=== PATIENT | male | born 1940 | race Caucasian/White ===

== ENCOUNTER 2016-08-05 10:09 | Inpatient (IN) | payer MEDICARE, OTHER ==
[2016-08-05] VITALS (18 sets, daily range): BP systolic 154–172; BP diastolic 69–94; PULSE 65–94; RESP 14–16; TEMP 98.2–99.2; O2SAT 97–100
[~2016-08-05] VITALS: Ht 175.3 cm; Wt 92.6 kg
[~2016-08-05 10:09] MED LIST: ACET325T PO; AMLO5 PO; AMPI1INJ IV; BUME1TAB PO; CARV3.12 PO; CARV6.25 PO; DRON2.5 PO; FENO160T PO; FERR325T PO; GENT80I IV; HYDR10TA23 PO; IPRASOL NEB; LANTUS2P SQ; LEVA750T PO; LEVEMIR SQ; LIDO5DIS35 TD; LOSA100T PO; METF500T PO; PANT20 PO; POTA10TA2 PO; PRAZ2 PO; PRAZ2CAP PO; PRIL20CA9 PO; ROSU1TAB10 PO; ULTR50TA5 PO; WARF-23 PO
[2016-08-05] MEDS ORDERED: CHLORHEXIDINE GLUCONATE 2 % 1 PACK (2 CLOTHS)(extra cloths) TOP PRN (11:00)
--- NOTE | 2016-08-05 11:26 | RADRPT ---
EXAM DATE/TIME: 08/05/2016 10:56 [facility] COMPARISON: CT BRAIN W/O CONTRAST, July 24, 2016, 10:25. INDICATIONS : Change in mental status. RADIATION DOSE: 50.34 CTDIvol (mGy) MEDICAL HISTORY : Myocardial infarction. Renal failure, chronic. Chronic obstructive pulmonary disease.Diabetes. Hyper tension. SURGICAL HISTORY : CABG ENCOUNTER: Initial ACUITY: 1 day PAIN SCALE: Non-responsive LOCATION: cranial TECHNIQUE: Multiple contiguous axial images were obtained of the head. Using automated exposure control and adj ustment of the mA and/or kV according to patient size, radiation dose was kept as low as reasonably a chievable to obtain optimal diagnostic quality images. FINDINGS: CEREBRUM: Small foci of low attenuation involving the periventricular white matter posterior hemispheres as wel l as the thalami bilaterally. The ventricles are normal for age. No evidence of midline shift, mass lesion, hemorrhage or acute infarction. No extra-axial fluid collections are seen. POSTERIOR FOSSA: The cerebellum and brainstem are intact. The 4th ventricle is midline. The cerebellopontine angle i s unremarkable. EXTRACRANIAL: The visualized portion of the orbits is intact. SKULL: The calvaria is intact. No evidence of skull fracture. CONCLUSION: 1. No acute intracranial abnormality. 2. Chronic small vessel ischemic change. Govind Terry Jr., MD on August 05, 2016 at 11:22 Board Certified Radiologist. This report was verified electronically.
[2016-08-05 11:56] LABS: BLOOD GAS BASE EXCESS -2.5 mmol/L (-2-2); BLOOD GAS CARBOXYHEMOGLOBIN 1.4 % (0-4); BLOOD GAS HCO3 21 mmol/L (22-26); BLOOD GAS METHEMOGLOBIN 1.1 % (0-2); BLOOD GAS O2 HGB SATURATION 97 % (90-100); BLOOD GAS OXYGEN CONTENT 14.8 Vol % (12.0-20.0); BLOOD GAS PCO2 32 mmHg (38-42); BLOOD GAS PO2 168 mmHg (61-120); BLOOD GAS TOTAL HGB 10.6 G/DL (12.0-16.0); CRITICAL VALUE NO; OXYGEN DEVICE VENTILATOR; TEMP CORR TO 98.6
[2016-08-05 11:57] LABS: DRAW SITE LT RADIAL; FIO2 50 %; NUMBER OF ARTERIAL PUNCTURES 1; ULNAR PULSE Y; VENT SETTINGS AC14/500/5PEEP
[2016-08-05] MEDS: PANTOPRAZOLE SODIUM 40 MG VIAL IV SCH (12:00)
[2016-08-05] MEDS ORDERED: CHLORHEXIDINE GLUCONATE 2 % 1 PACK (2 CLOTHS) TOP PRN (12:00)
[2016-08-05] MEDS ORDERED: MISCELLANEOUS NURSING INFORMATION XX SCH (12:00)
[2016-08-05] MEDS ORDERED: GLUCAGON 1 MG/ML VIAL OTHER PRN (12:15)
[2016-08-05] MEDS: INSULIN NovoLIN REGULAR SUPPLEMENTAL SCALE SQ SCH ×2 (12:15→18:15)
[2016-08-05] MEDS ORDERED: DEXTROSE 50% IN WATER 50 ML VIAL(D50) IV PUSH PRN (12:15)
[2016-08-05] MEDS: RESP: ALBUTEROL 2.5 MG/IPRATROPIUM 0.5 MG NEB (SCH) INH ×3 (12:31→20:22)
--- NOTE | 2016-08-05 12:43 | RADRPT ---
EXAM DATE/TIME: 08/05/2016 11:49 [facility] COMPARISON: CHEST SINGLE AP, July 31, 2016, 8:45. INDICATIONS : Endotracheal tube placement. MEDICAL HISTORY : None. SURGICAL HISTORY : None. ENCOUNTER: Initial ACUITY: 1 day PAIN SCORE: Non-responsive. LOCATION: chest FINDINGS: Again noted is evidence of prior median sternotomy cardiac surgery. There is a left PICC line in plac e and nasogastric tube passing to the midline in the stomach as well as placement of an endotracheal tube terminating just above the su. Lung degroot remain clear. CONCLUSION: ET tube above the su. No acute cardiopulmonary process. Robert Ballard MD on August 05, 2016 at 12:40 Board Certified Radiologist. This report was verified electronically.
--- NOTE | 2016-08-05 12:50 | MH ---
cc: JOSHUA BAKER M.D. 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 The patient was recently diagnosed with Enterococcus bacteremia and was started on IV antibiotics in the form of ampicillin and gentamicin. 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 He had a CT scan of the brain which showed multiple small areas of acute infarcts involving the right occipital lobe, right thalamic, right parietal, left frontal and left cerebellar hemisphere. MRI of the brain was obtained which also showed multiple acute infarcts and MRA of the head showed findings compatible with occlusion of the right internal carotid artery. He was admitted to [facility] after the patient was found unresponsive with agonal breathing and neuro changes. He was subsequently transferred to [facility] where he was intubated and placed on full mechanical ventilation. A STAT CT scan of the brain was obtained which showed chronic small-vessel ischemic changes, otherwise no acute intracranial abnormality. PAST MEDICAL HISTORY 1. COPD. 2. Gastroesophageal reflux disease. 3. Hypertension. 4. Diabetes. 5. Arthritis. 6. Chronic atrial fibrillation on Coumadin. 7. Carotid stenosis. 8. Recent treatment for Enterococcus bacteremia. 9. CVA. PAST SURGICAL HISTORY 1. Previous aortic valve replacement. 2. Previous CABG. 3. Previous hemorrhoidectomy. ALLERGIES KEFLEX. OXYCODONE. CURRENT MEDICATIONS Reviewed. FAMILY HISTORY Noncontributory. SOCIAL HISTORY The patient has remote history of smoking. No history of alcohol use. REVIEW OF SYSTEMS As per the HPI. Rest of the review of systems unobtainable as the patient is intubated. PHYSICAL EXAMINATION GENERAL: A 76-year-old male intubated for airway protection. VITAL SIGNS: Afebrile, pulse of 60s to 70s, blood pressure 146/67, saturation 97%. Vent setting assist control rate of 14, tidal volume 500, PEEP of 5, FIO2 50%. HEENT: Atraumatic, normocephalic. Pupils equal, round, reactive to light and accommodation. Extraocular muscles intact. Conjunctivae pink. Nonicteric sclera. Oral mucosa within normal. NECK: Supple. No JVD, adenopathy or thyromegaly. Trachea in the midline. Orally intubated. CARDIOVASCULAR EXAM: Regular rate and rhythm. Normal S1-S2. No murmurs, rubs or gallops noted. PULMONARY EXAM: Bilateral equal air entry. No rales or wheezing. ABDOMEN: Soft, obese, nontender. No distension. Positive bowel sounds. EXTREMITIES: No cyanosis, clubbing or edema. NEURO: Intubated, sedated. Slurred speech is noted prior to intubation. LABORATORY DATA ABG post-intubation showed a pH of 7.43, CO2 32, pAO2 168, bicarb 21, sats of 97%. Sodium 138, potassium 3.9, chloride 105, CO2 22, BUN 23, creatinine 1.82, glucose 99 on August 03. RADIOGR[address]HY STUD[address] CT scan of the brain this morning showed no acute intracranial abnormality. IMPRESSION 1. Acute respiratory failure requiring intubation. 2. Encephalopathy. 3. Embolic CVA. 4. Recent Enterococcus bacteremia. 5. Chronic kidney disease. 6. Atrial fibrillation on Coumadin. 7. Hypertension. 8. Diabetes mellitus. RECOMMENDATIONS 1. Place on Diprivan infusion for sedation and vent synchrony. Monitor neuro status closely. CT scan of the brain from this morning showed no evidence of any acute intracranial abnormality. We will proceed with MRI and MRA of the brain in addition to an EEG and consult neurology service. Also, will obtain carotid Doppler ultrasound. 2. Continue with vent support and maintain sats above 92%. 3. Bronchodilators in the form of DuoNeb q. 4 or q. 6 and will initiate ICU vent bundle. We will check a chest x-ray post-intubation. ABG reviewed. Decrease FIO2 to 40%. 4. Monitor heart rate and blood pressure closely and maintain MAP greater than 65 mmHg. 5. We will obtain 2-D echo to evaluate LV function. 6. Monitor renal function I's and O's and avoid nephrotoxins. 7. Place on IV fluids in the form of D5 NS at [address] on Protonix 40 mg IV daily for GI prophylaxis and will initiate tube feeds in the form of Glucerna 1.5 with goal rate of 45 per hour. 9. Continue with antibiotics- ampicillin. We will reconsult Infectious Disease regarding Enterococcus bacteremia. We will repeat blood cultures x 2 sets and urinalysis with culture if indicated. 10. Sliding scale insulin with Accu-Chek q. 6-hour if needed for glycemic control. 11. Monitor CBC and coags as patient is on Coumadin with his last INRs 2.0 yesterday. 12. GI prophylaxis with Protonix 40 mg daily and DVT prophylaxis with SCDs and continue with Coumadin. Further recommendations will be based on hospital course. CRITICAL CARE TIME 60 minutes excluding procedures. MD VELASQUEZ Banerjee/DENNIS /12:22 PM /12:36 PM MTDHelene
--- NOTE | 2016-08-05 13:04 | HHI.IDPN ---
Note Infectious Disease Note Patient is now in IMC - transferred for acute neurological change. Intubated and on the ventilator. On 40% FIO2. In soft hand restraints. Has stallings with clear urine. Copious biliary liquid suctioned. New labs pending. Transferred to rehab from [facility] /. On treatment for enterococcal bacteremia. Last blood culture 07/19 at NS negative. PAST MEDICAL HISTORY: 1. COPD. 2. Gastroesophageal reflux disease (GERD). 3. Hypertension. 4. Diabetes mellitus. 5. Arthritis. 6. Chronic atrial fibrillation. 7. Carotid stenosis. PAST SURGICAL HISTORY: 1. Aortic valve replacement. 2. Coronary bypass graft surgery. 3. Hemorrhoidectomy. ALLERGIES: 1. KEFLEX. 2. OXYCODONE. ANTIBIOTIC Ampicillin IV. Current Medications Medications (Trade) Dose Ordered Sig/Ashley Route PRN Reason Start Time Stop Time Status Last Admin Dose Admin Pantoprazole Sodium (Protonix Inj) 40 mg DAILY IV 08/05/16 12:00 08/05/16 12:00 Miscellaneous Information 1 Q361D XX 08/05/16 12:00 Chlorhexidine Gluconate (Chlorhexidine 2% Cloth) 3 pack Taper DAILY@04 TOP 08/06/16 04:00 08/02/17 03:59 Chlorhexidine Gluconate 3 pack 3 pack UNSCH PRN [facility] 08/05/16 12:00 Propofol (Diprivan 1000 Mg/100ml Inj) 100 ml @ 0 mls/hr TITRATE IV 08/05/16 12:00 Dextrose (D50w (Vial) Inj) 25 ml UNSCH PRN IV PUSH HYPOGLYCEMIA-SEE COMMENTS 08/05/16 12:15 Glucagon (Glucagon Inj) 1 mg UNSCH PRN OTHER HYPOGLYCEMIA-SEE COMMENTS 08/05/16 12:15 Insulin Human Regular (NovoLIN R SUPPLEMENTAL SCALE) 1 Q6H SQ 08/05/16 12:15 Hydralazine HCl (Apresoline Inj) 10 mg Q6H PRN IV PUSH SYS BP GREATER THAN 160 MMHG 08/05/16 12:15 OBJECTIVE: Vital Signs Date Time Temp Pulse Resp B/P Pulse Ox O2 Delivery O2 Flow Rate FiO2 08/05/16 10:45 97 50 08/05/16 10:10 99 50 08/05/16 10:00 97 08/01/16 08/01/16 08/02/16 15:00 23:00 07:00 Intake Total 240 ml 560 ml Output Total 650 ml Balance -410 ml 560 ml Intake Oral 240 ml 340 ml IV Total 220 ml Output Urine Total 650 ml # Voids 2 3 Laboratory Tests Test 08/02/16 08:35 White Blood Count 12.8 TH/MM3 Red Blood Count 3.07 MIL/MM3 Hemoglobin 7.8 GM/DL Hematocrit 24.6 % Mean Corpuscular Volume 80.3 FL Mean Corpuscular Hemoglobin 25.4 PG Mean Corpuscular Hemoglobin 31.7 % Concent Red Cell Distribution Width 19.3 % Platelet Count 221 TH/MM3 Mean Platelet Volume 8.8 FL Laboratory Tests Test 08/02/16 08:34 Sodium Level 137 MEQ/L Potassium Level 4.1 MEQ/L Chloride Level 105 MEQ/L Carbon Dioxide Level 21.2 MEQ/L Anion Gap 11 MEQ/L Blood Urea Nitrogen 27 MG/DL Creatinine 1.91 MG/DL Estimat Glomerular Filtration 34 ML/MIN Rate Random Glucose 142 MG/DL Calcium Level 8.4 MG/DL IMAGING: Head CT 08/05/16 0000 Signed Impressions: Service Date/Time: Friday, August 05, 2016 10:56 - CONCLUSION: 1. No acute intracranial abnormality. 2. Chronic small vessel ischemic change. Govind Terry Jr., MD Lower Extremity Ultrasound 07/31/16 0000 Signed Impressions: Service Date/Time: Sunday, July 31, 2016 09:00 - CONCLUSION: Negative for deep venous thrombosis. Dixon Cruz MD FACR Chest X-Ray 07/31/16 0000 Signed Impressions: Service Date/Time: Sunday, July 31, 2016 08:45 - CONCLUSION: Stable appearance with no acute cardiopulmonary disease. Darell Andrews MD Head CT 07/24/16 0911 Signed Impressions: Service Date/Time: Sunday, July 24, 2016 10:25 - CONCLUSION: No acute disease. Dixon Cruz MD FACR Renal Ultrasound 07/23/16 0000 Signed Impressions: Service Date/Time: Saturday, July 23, 2016 15:41 - CONCLUSION: 1. Bilateral renal cysts. No hydronephrosis. Scotty Miranda MD Ankle X-Ray 07/19/16 0000 Signed Impressions: Service Date/Time: Tuesday, July 19, 2016 18:51 - CONCLUSION: Chronic changes and no evidence for acute fracture. Rashad Hagen MD PHYSICAL EXAMINATION GENERAL: On the vent. Sedated. HEENT: No icterus. No conjunctival erythema. NECK: Supple. LUNGS: Clear breath sounds. HEART: Irregular rate and rhythm. 1-2/6 systolic murmur. ABDOMEN: Bowel sounds present, soft, no tenderness. EXTREMITIES: No clubbing or cyanosis, edema. SKIN: No rash. NEUROLOGIC: Unable to fully assess. IMPRESSION: 1. Enterococcal bacteremia. 2. Acute kidney disease probably exacerbated by aminoglycosides. Slow to improve. worse indices. 3. Elevated liver function tests, uncertain etiology. Resolved. 4. History of aortic valve replacement. Negative transesophageal echocardiogram. 5. Decreased mental status waxing and waning. Patient was somnolent a week ago and then got better. Probably medication effect. Acute mental status change. 6. Acute Respiratory failure. RECOMMENDATIONS: 1. Continue Ampicillin IV. Plan is for IV antibiotics x 6 weeks from 07/19/16 date of last positive blood culture. 2. Monitor renal function. Avoid nephrotoxic meds. 3. Monitor WBC. 4. Follow CXR. Srinath Jean-Baptiste MD Aug 05, 2016 13:03
[2016-08-05 14:05] LABS: BACTERIA, URINE RARE /hpf; BLOOD, URINE NEG (NEG); GLUCOSE,URINE NEG (NEG); KETONE, URINE NEG (NEG); MUCUS URINE FEW /lpf (OCC); NITRITE,URINE NEG (NEG); PH, URINE 5.5 (5.0-8.5); URINE COLOR YELLOW (YELLW/STRAW)
[2016-08-05 14:10] LABS: COMMENT (UR) CATH-CULTURE IND; CULTURE IF INDICATED CATH CULTURE IND
[2016-08-05 14:27] LABS: AUTOMATED NEUTROPHIL # 10.4 TH/MM3 (1.8-7.7); BASOPHIL # 0.1 TH/MM3 (0-0.2); BASOPHIL % 0.7 % (0.0-2.0); EOSINOPHIL # 0.2 TH/MM3 (0-0.4); EOSINOPHIL % 1.8 % (0.0-4.0); HEMATOCRIT 23.3 % (39.0-51.0); HEMO FLAGS DIFF FINAL; LYMPH % 4.8 % (9.0-44.0); LYMPHOCYTE # 0.6 TH/MM3 (1.0-4.8); MEAN CELL VOLUME 79.6 FL (80.0-100.0); MEAN CORPUSCULAR HEMOGLOBIN 25.7 PG (27.0-34.0); MEAN CORPUSCULAR HGB CONC 32.2 % (32.0-36.0); MONO % 7.8 % (0.0-8.0); NEUT % 84.9 % (16.0-70.0); PLATELET COUNT 241 TH/MM3 (150-450); RED BLOOD COUNT 2.93 MIL/MM3 (4.50-5.90); RED CELL DISTRIBUTION WIDTH 19.2 % (11.6-17.2); WHITE BLOOD COUNT 12.3 TH/MM3 (4.0-11.0)
[2016-08-05 14:36] LABS: ALT (GPT) 26 U/L (12-78); ANION GAP 9 MEQ/L (5-15); AST (GOT) 24 U/L (15-37); BLOOD UREA NITROGEN 22 MG/DL (7-18); CHLORIDE 109 MEQ/L (98-107); GLOMERULAR FILTRATION RATE 42 ML/MIN (>89); MAGNESIUM 2.1 MG/DL (1.5-2.5); SODIUM (NA) 141 MEQ/L (136-145)
[2016-08-05 14:38] LABS: ALKALINE PHOSPHATASE 163 U/L (45-117); TOTAL BILIRUBIN ADULT 0.5 MG/DL (0.2-1.0)
[2016-08-05] MEDS: DEXT 5%-NACL 0.9% 1000 ML INJ 1,000 ML IV SCH (16:00)
--- NOTE | 2016-08-05 17:27 | RADRPT ---
EXAM DATE/TIME: 08/05/2016 16:12 [facility] COMPARISON: CT BRAIN W/O CONTRAST, July 24, 2016, 10:25. INDICATIONS : CVA. MEDICAL HISTORY : Hypertension. Diabetes mellitus type 2. SURGICAL HISTORY : CABG ENCOUNTER: Initial ACUITY: 1 day PAIN SCORE: Nonresponsive. LOCATION: Head TECHNIQUE: Multiplanar, multisequence MRI of the brain was performed without contrast. FINDINGS: There is an area of restricted diffusion involving the left MCA territory. This involves the left fro ntal lobe, insular cortex, temporal lobe, and parietal lobe. No hemorrhage is appreciated. There is s ubtle high T2 signal abnormality within this same location. No midline shift. There is reduced signal on the ADC map in the same location. The remaining brain parenchyma shows normal attenuation. Orbita l structures are unremarkable. Paranasal sinuses and mastoid air cells are clear. CONCLUSION: 1. Large left acute nonhemorrhagic MCA territory infarction. No midline shift. Govind Terry Jr., MD on August 05, 2016 at 17:20 Board Certified Radiologist. This report was verified electronically.
--- NOTE | 2016-08-05 17:57 | RADRPT ---
EXAM DATE/TIME: 08/05/2016 16:12 [facility] COMPARISON: MRI BRAIN W/O CONTRAST, August 05, 2016, 16:12. CT BRAIN W/O CONTRAST, Jul, 10:56. INDICATIONS : CVA. MEDICAL HISTORY : Hypertension. Diabetes mellitus type 2. SURGICAL HISTORY : CABG ENCOUNTER: Initial ACUITY: 1 day PAIN SCORE: Nonresponsive. LOCATION: head Please note a normal MRA of the brain does not entirely exclude the possibility of a small aneurysm, nor the possibility of distal intracranial vessel disease. TECHNIQUE: 3D time of flight MRA was performed. Source images, multiplanar STS MIP, and 3D volum e MIP reconstructions were reviewed. FINDINGS: Posterior circulation appears intact. The anterior circulation is abnormal. There is st enosis at the left internal carotid in the distal portion of the siphon. There is minimal visualizati on of the right internal carotid and the siphon with intracranial branches noting some mild atheroscl erosis and the right side probably filling via posterior communicating artery. The left M1 segment at its distal ostium is abruptly terminated correlating with acute stroke in the left middle cerebral a rtery. Thrombus cannot be excluded. CONCLUSION: Severe atherosclerotic vascular disease. Stenosis is not almost 100% in the right int ernal carotid with filling of the intracranial portion of this via posterior communicating from the p osterior circulation. Left initial M1 segment is abruptly terminated which may repr esent acute thrombus which would correlate with the left middle cerebral artery stroke on MRI. These abnormal findings could be further evaluated with CTA o f the brain and or angiography. Robert Ballard MD on August 05, 2016 at 17:49 Board Certified Radiologist. This report was verified electronically.
[2016-08-05] MEDS: PROPOFOL 1000 MG/100 ML INJ 100 ML IV SCH ×4 (18:27→21:51)
[2016-08-05] MEDS: AMPICILLIN 2 GM/NS 100 ML IV SCH ×2 (18:29)
--- NOTE | 2016-08-05 23:28 | RADRPT ---
EXAM DATE/TIME: 08/05/2016 22:25 [facility] COMPARISON: MRA BRAIN W/O CONTRAST, August 05, 2016, 16:12. INDICATIONS : Cerebrovascular accident. MEDICAL HISTORY : Myocardial infarction. Congestive heart failure. Hypercholesterolemia. Carotid stenosis. Head trauma. Hypertension. Asthma. Chronic obstructive pulomonary disorder. Gastroesophageal reflux disease. Sonia l failure. Renal calculi. Diabetes. Arthritis. A-Fib. SURGICAL HISTORY : CABG. Hemorrhoidectomy. Aortic valve replacement. Left and and rotator cuff repair. ENCOUNTER: Initial ACUITY: 1 day PAIN SCORE: Nonresponsive. LOCATION: Bilateral neck PEAK SYSTOLIC VELOCITIES (cm/sec): ICA/CCA RATIO: Right: 0.4 Left: 1.0 ICA: Right: 29 Left: 65 CCA: Right: 69 Left: 67 ECA: Right: 109 Left: 114 VERTEBRAL: Right: 109 antegrade Left: 26 antegrade Elevated flow velocities and ICA/CCA ratios have been found to correlate with increased degrees of vessel stenosis, calculated as percentage of diameter relative to a normal segment of distal ICA/CCA FINDINGS: RIGHT CAROTID: There is moderate plaque at the carotid bulb region. It appears the right internal carotid artery is occluded. LEFT CAROTID: There is moderate plaque seen on the grayscale image at the carotid bulb region. The waveforms are wi thin normal limits. VERTEBRAL ARTERIES: Antegrade flow is seen in both vertebral arteries. MISCELLANEOUS: None. CONCLUSION: 1. Right internal carotid artery occlusion. 2. Moderate plaque at the left carotid bulb region, a significant stenosis is not confirmed on the Do ppler interrogation. Carlos Eduardo Jordan MD on August 05, 2016 at 23:24 Board Certified Radiologist. This report was verified electronically.
[2016-08-06] VITALS (20 sets, daily range): BP systolic 140–176; BP diastolic 63–79; PULSE 59–78; RESP 14–18; TEMP 98.6–99.9; O2SAT 98–100
[2016-08-06] MEDS: INSULIN NovoLIN REGULAR SUPPLEMENTAL SCALE SQ SCH ×3 (00:15→12:15)
[2016-08-06] MEDS: AMPICILLIN 2 GM/NS 100 ML IV SCH ×8 (00:46→18:00)
[2016-08-06] MEDS: PROPOFOL 1000 MG/100 ML INJ 100 ML IV SCH ×3 (00:47→19:15)
[2016-08-06] MEDS: RESP: ALBUTEROL 2.5 MG/IPRATROPIUM 0.5 MG NEB (SCH) INH ×4 (03:02→21:11)
[2016-08-06] MEDS ORDERED: CHLORHEXIDINE GLUCONATE 2 % 1 PACK (2 CLOTHS)(taper/protocol) TOP SCH (04:00)
[2016-08-06 04:27] LABS: INTERNATIONAL NORMALIZED RATIO 2.2 RATIO; PROTHROMBIN TIME - PATIENT 25.7 SEC (9.8-11.6)
[2016-08-06 04:31] LABS: AUTOMATED NEUTROPHIL # 11.2 TH/MM3 (1.8-7.7); BASOPHIL # 0.3 TH/MM3 (0-0.2); BASOPHIL % 2.2 % (0.0-2.0); EOSINOPHIL # 0.7 TH/MM3 (0-0.4); EOSINOPHIL % 5.1 % (0.0-4.0); HEMATOCRIT 23.6 % (39.0-51.0); HEMO FLAGS DIFF FINAL; LYMPH % 5.3 % (9.0-44.0); LYMPHOCYTE # 0.8 TH/MM3 (1.0-4.8); MEAN CELL VOLUME 79.4 FL (80.0-100.0); MEAN CORPUSCULAR HEMOGLOBIN 25.7 PG (27.0-34.0); MEAN CORPUSCULAR HGB CONC 32.4 % (32.0-36.0); MONO % 9.9 % (0.0-8.0); NEUT % 77.5 % (16.0-70.0); PLATELET COUNT 261 TH/MM3 (150-450); RED BLOOD COUNT 2.98 MIL/MM3 (4.50-5.90); RED CELL DISTRIBUTION WIDTH 19.4 % (11.6-17.2); WHITE BLOOD COUNT 14.4 TH/MM3 (4.0-11.0)
[2016-08-06 04:54] LABS: ALT (GPT) 23 U/L (12-78); ANION GAP 9 MEQ/L (5-15); AST (GOT) 30 U/L (15-37); BICARBONATE 23.8 MEQ/L (21.0-32.0); BLOOD UREA NITROGEN 18 MG/DL (7-18); CHLORIDE 109 MEQ/L (98-107); GLOMERULAR FILTRATION RATE 42 ML/MIN (>89); MAGNESIUM 2.1 MG/DL (1.5-2.5); POTASSIUM 3.5 MEQ/L (3.5-5.1); SODIUM (NA) 142 MEQ/L (136-145)
[2016-08-06 04:57] LABS: ALKALINE PHOSPHATASE 158 U/L (45-117); TOTAL BILIRUBIN ADULT 0.5 MG/DL (0.2-1.0)
[2016-08-06] MEDS: CHLORHEXIDINE GLUCONATE 2 % 1 PACK (2 CLOTHS) TOP SCH (05:11)
[2016-08-06] MEDS: DEXT 5%-NACL 0.9% 1000 ML INJ 1,000 ML IV SCH ×2 (05:13→18:20)
--- NOTE | 2016-08-06 07:44 | MB ---
cc: MICHAEL ABDI M.D. DATE OF CONSULTATION 08/05/2016 DATE OF 1940 REASON FOR CONSULTATION Stroke HISTORY The patient is a 76-year-old man previously was at [facility] in [facility] on 07/12/2016 with weakness that began a month prior to admission and having falls, sepsis and enterococcus. PE was negative for vegetation however, was being treated for endocarditis due to bacteremia and a history of aortic valve replacement. He was on IV ampicillin for six weeks and gentamicin for seven days. He was also found to have a stroke due to embolism showing bilateral acute infarcts largest in the right occipital lobe, smaller multiple infarcts around the right thalamus, parietal lobe on the right, centrum semi-ovale on the right, left frontal lobe, left parietal lobe and cerebellar hemispheres. Also showing right internal carotid occlusion and MRA of the head showed occlusion of the right internal carotid, left cavernous internal carotid greater than 70%. Carotid duplex showed occlusion of the right carotid and left mid internal carotids 70-90% stenosis. He was admitted to [facility]. However, he is now in ICU. A Helicat was called. The patient was found unresponsive with agonal breathing and neuro changes. He was transferred to [facility], intubated, placed on sedation with full mechanical ventilation He had a CT of the brain performed that did not show any findings. MRI was just completed that shows a large acute left MCA what looks to be a malignant left MCA infarct. The report is still pending and MRA report is pending. PAST MEDICAL HISTORY The patient has a history of: 1. COPD 2. Reflux 3. Stroke 4. Hypertension 5. Diabetes 6. A fib on Coumadin 7. Carotid stenosis 8. Treatment of enterococcus bacteremia PAST SURGICAL HISTORY 1. AVR 2. Aortic valve replacement 3. CABG 4. Hemorrhoidectomy ALLERGIES KEFLEX AND OXYCODONE. FAMILY HISTORY Noncontributory SOCIAL HISTORY Remote history of smoking. NO alcohol. Apparently, I am told he has four children. PHYSICAL EXAM VITALS: Temperature 98.2, pulse 87, respiratory rate 14. His blood pressure 153/73. HEAD, EYES, EARS, NOSE, AND THROAT: He is intubated on a ventilator. Pinpoint pupils, downward gaze, sedated. Unable to arouse him. NEUROLOGIC: He has right hemiplegia. Right leg is externally deviated. Left toe, he withdraws to noxious stimuli. Does not follow any commands otherwise. LABORATORY DATA White count 12.3, hemoglobin 7.5, platelets 241,000. Coag panel PTT 35.5. Chemistries, BUN 22, creatinine 1.59, GFR 42, calcium 8.2. His urine cath culture is pending. Protein 100. Nasal MRSA negative. MRI report shows large left acute nonhemorrhagic MCA territory without shift. MRA is still pending. IMPRESSION Large left MCA infarct with a history of embolic stroke. Carotid disease bilateral. RECOMMENDATIONS I know he is undergoing a carotid ultrasound as well. MRA report is pending. He has been on Warfarin. His last INR this morning was 2.7 with a PTT of 35.5. I would hold his anticoagulation due to increased risk of hemorrhagic conversion. Despite having an adequate INR, he still had a large stroke. We will monitor his neuro status on a daily basis, however I am worried that he may start developing edema and risk for herniation and we would need to check a CT in the morning stat should he have worsening of his condition. Prognosis is extremely poor given the findings of prior stroke and new stroke on top of this especially his dominant hemisphere. I know palliative has been consulted. Further recommendations will be made accordingly. MD ARIANE Morales/LETHA /6:02 PM /7:24 AM
[2016-08-06] MEDS: PANTOPRAZOLE SODIUM 40 MG VIAL IV SCH (09:14)
--- NOTE | 2016-08-06 09:29 | HHI.CCPN ---
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 The patient was recently diagnosed with Enterococcus bacteremia and was started on IV antibiotics in the form of ampicillin and gentamicin. 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 He had a CT scan of the brain which showed multiple small areas of acute infarcts involving the right occipital lobe, right thalamic, right parietal, left frontal and left cerebellar hemisphere. MRI of the brain was obtained which also showed multiple acute infarcts and MRA of the head showed findings compatible with occlusion of the right internal carotid artery. [facility] was [facility]. Mary Lou was called earlier today as a Stroke Alert after the patient was found unresponsive with agonal breathing and neuro changes. He was [place] [facility] and placed on full mechanical ventilation. A STAT CT scan of the brain was obtained which showed chronic small-vessel ischemic changes, otherwise no acute intracranial abnormality. 08/06 Patient is sedated with Diprivan and sedated, Afebrile. MRI brain showed large left MCA non hemorrhagic infarct. Objective Vital Signs Date Time Temp Pulse Resp B/P Pulse Ox O2 Delivery O2 Flow Rate FiO2 08/06/16 08:18 100 40 08/06/16 08:00 66 08/06/16 04:00 98.6 14 146/65 08/05/16 17:24 Venturi Mask Intake and Output 08/05/16 08/05/16 08/06/16 08:00 16:00 00:00 Intake Total 950 ml 498 ml Output Total 950 ml 850 ml Balance 0 ml -352 ml Result Diagram: 08/06/16 0352 08/06/16 0352 Other Results Laboratory Tests Test 08/05/16 08/05/16 08/05/16 08/05/16 10:00 11:50 13:00 13:13 Nasal Screen MRSA (PCR) NEGATIVE Blood Gas Puncture Site LT RADIAL Blood Gas Patient Temperature 98.6 Blood Gas HCO3 21 mmol/L Blood Gas Base Excess -2.5 mmol/L Blood Gas Oxygen Saturation 97 % Arterial Blood pH 7.43 Arterial Blood Partial 32 mmHg Pressure CO2 Arterial Blood Partial 168 mmHg Pressure O2 Arterial Blood Oxygen Content 14.8 Vol % Arterial Blood 1.4 % Carboxyhemoglobin Arterial Blood Methemoglobin 1.1 % Blood Gas Hemoglobin 10.6 G/DL Oxygen Delivery Device VENTILATOR Blood Gas Ventilator Setting AC14/500/5PEEP Blood Gas Inspired Oxygen 50 % Urine Color YELLOW Urine Turbidity CLEAR Urine pH 5.5 Urine Specific [place] 1.021 Urine Protein 100 mg/dL Urine Glucose (UA) NEG mg/dL Urine Ketones NEG mg/dL Urine Occult Blood NEG Urine Nitrite NEG Urine Bilirubin NEG Urine Urobilinogen LESS THAN 2.0 MG/DL Urine Leukocyte Esterase NEG Urine RBC 1 /hpf Urine WBC 1 /hpf Urine Bacteria RARE /hpf Urine Mucus FEW /lpf Microscopic Urinalysis Comment CATH-CULTURE IND White Blood Count 12.3 TH/MM3 Red Blood Count 2.93 MIL/MM3 Hemoglobin 7.5 GM/DL Hematocrit 23.3 % Mean Corpuscular Volume 79.6 FL Mean Corpuscular Hemoglobin 25.7 PG Mean Corpuscular Hemoglobin 32.2 % Concent Red Cell Distribution Width 19.2 % Platelet Count 241 TH/MM3 Mean Platelet Volume 8.6 FL Neutrophils (%) (Auto) 84.9 % Lymphocytes (%) (Auto) 4.8 % Monocytes (%) (Auto) 7.8 % Eosinophils (%) (Auto) 1.8 % Basophils (%) (Auto) 0.7 % Neutrophils # (Auto) 10.4 TH/MM3 Lymphocytes # (Auto) 0.6 TH/MM3 Monocytes # (Auto) 1.0 TH/MM3 Eosinophils # (Auto) 0.2 TH/MM3 Basophils # (Auto) 0.1 TH/MM3 CBC Comment DIFF FINAL Differential Comment Sodium Level 141 MEQ/L Potassium Level 4.0 MEQ/L Chloride Level 109 MEQ/L Carbon Dioxide Level 23.0 MEQ/L Anion Gap 9 MEQ/L Blood Urea Nitrogen 22 MG/DL Creatinine 1.59 MG/DL Estimat Glomerular Filtration 42 ML/MIN Rate Random Glucose 91 MG/DL Calcium Level 8.2 MG/DL Phosphorus Level 3.0 MG/DL Magnesium Level 2.1 MG/DL Total Bilirubin 0.5 MG/DL Aspartate Amino Transf 24 U/L (AST/SGOT) Alanine Aminotransferase 26 U/L (ALT/SGPT) Alkaline Phosphatase 163 U/L Total Protein 6.3 GM/DL Albumin 2.0 GM/DL Test 08/06/16 03:52 White Blood Count 14.4 TH/MM3 Red Blood Count 2.98 MIL/MM3 Hemoglobin 7.6 GM/DL Hematocrit 23.6 % Mean Corpuscular Volume 79.4 FL Mean Corpuscular Hemoglobin 25.7 PG Mean Corpuscular Hemoglobin 32.4 % Concent Red Cell Distribution Width 19.4 % Platelet Count 261 TH/MM3 Mean Platelet Volume 8.4 FL Neutrophils (%) (Auto) 77.5 % Lymphocytes (%) (Auto) 5.3 % Monocytes (%) (Auto) 9.9 % Eosinophils (%) (Auto) 5.1 % Basophils (%) (Auto) 2.2 % Neutrophils # (Auto) 11.2 TH/MM3 Lymphocytes # (Auto) 0.8 TH/MM3 Monocytes # (Auto) 1.4 TH/MM3 Eosinophils # (Auto) 0.7 TH/MM3 Basophils # (Auto) 0.3 TH/MM3 CBC Comment DIFF FINAL Differential Comment Prothrombin Time 25.7 SEC Prothromb Time International 2.2 RATIO Ratio Sodium Level 142 MEQ/L Potassium Level 3.5 MEQ/L Chloride Level 109 MEQ/L Carbon Dioxide Level 23.8 MEQ/L Anion Gap 9 MEQ/L Blood Urea Nitrogen 18 MG/DL Creatinine 1.59 MG/DL Estimat Glomerular Filtration 42 ML/MIN Rate Random Glucose 86 MG/DL Calcium Level 8.2 MG/DL Phosphorus Level 3.1 MG/DL Magnesium Level 2.1 MG/DL Total Bilirubin 0.5 MG/DL Aspartate Amino Transf 30 U/L (AST/SGOT) Alanine Aminotransferase 23 U/L (ALT/SGPT) Alkaline Phosphatase 158 U/L Total Protein 6.2 GM/DL Albumin 1.9 GM/DL Imaging Last Impressions Head Magnetic Resonance Angiography 08/05/16 0000 Signed Impressions: Service Date/Time: Friday, August 05, 2016 16:12 - CONCLUSION: Severe atherosclerotic vascular disease. Stenosis is not almost 100%% in the right internal carotid with filling of the intracranial portion of this via posterior communicating from the posterior circulation. Left initial M1 segment is abruptly terminated which may represent acute thrombus which would correlate with the left middle cerebral artery stroke on MRI. These abnormal findings could be further evaluated with CTA of the brain and or angiography. Robert Ballard MD Head CT 08/05/16 0000 Signed Impressions: Service Date/Time: Friday, August 05, 2016 10:56 - CONCLUSION: 1. No acute intracranial abnormality. 2. Chronic small vessel ischemic change. Govind Terry Jr., MD Chest X-Ray 08/05/16 0000 Signed Impressions: Service Date/Time: Friday, August 05, 2016 11:49 - CONCLUSION: ET tube above the su. No acute cardiopulmonary process. Robert Ballard MD Carotid Artery Ultrasound 08/05/16 0000 Signed Impressions: Service Date/Time: Friday, August 05, 2016 22:25 - CONCLUSION: 1. Right internal carotid artery occlusion. 2. Moderate plaque at the left carotid bulb region, a significant stenosis is not confirmed on the Doppler interrogation. Carlos Eduardo Jordan MD Brain MRI 08/05/16 0000 Signed Impressions: Service Date/Time: Friday, August 05, 2016 16:12 - CONCLUSION: 1. Large left acute nonhemorrhagic MCA territory infarction. No midline shift. Govind Terry Jr., MD Objective Remarks GENERAL: Patient is 76 yo critically ill sedated and intubated. SKIN: Warm and dry. HEAD: Normocephalic. EYES: No scleral icterus. No injection or drainage. NECK: Supple, trachea midline. No JVD or lymphadenopathy. Orally intubated CARDIOVASCULAR: Regular rate and rhythm without murmurs, gallops, or rubs. RESPIRATORY: Breath sounds equal bilaterally. No accessory muscle use. GASTROINTESTINAL: Abdomen soft, non-tender, nondistended. MUSCULOSKELETAL: No cyanosis, or edema. Neuro: sedated. A/P Assessment and Plan 1. VDRF 2. Encephalopathy. 3. New left MCA non hemorrhagic infarct. 4. Recent Enterococcus bacteremia. 5. Chronic kidney disease. 6. Atrial fibrillation on Coumadin. 7. Hypertension. 8. Anemia 9 Hx CVA 10 Leukocytosis Plan Neuro: on Diprivan infusion for sedation and vent synchrony. Monitor neuro status closely. Follow up on EEG results. Neuro: Dr. Powell 08/05: CT brain: no evidence of any acute intracranial abnormality. 08/05: MRI brain: New left MCA non hemorrhagic infarct. 08/05: MRA brain: Severe atherosclerotic vascular disease. Stenosis is not almost 100%% in the right internal carotid with filling of the intracranial portion of this via posterior communicating from the posterior circulation. 08/05: Carotid Doppler US: Right internal carotid artery occlusion. Moderate plaque at the left carotid bulb region, Pulm: Continue with vent support and maintain sats above 92%. Bronchodilators, ICU vent bundle. CV: Monitor HR and BP and maintain MAP >65 mmHg. For 2-D echo to evaluate LV function. : Monitor renal function I's and O's and avoid nephrotoxins. On D5 NS at 75 per hour. GI: on Protonix 40 mg IV daily for GI prophylaxis On TF-Glucerna 1.5 with goal rate of 45 per hour. ID: Continue with abx per ID- Ampicillin. Follow up on blood and urine cxs CXR: No acute cardiopulmonary process. Endo: SSI with Accu-Chek q. 6-hour if needed for glycemic control. Heme: Monitor CBC and coags - INR 2.2 today GI prophylaxis with Protonix 40 mg daily and DVT prophylaxis with SCDs and patient was on Coumadin with INR: 2.2 today. Coumadin on hold per neuro due to increased risk of hemorrhagic conversion. Palliative care is consulted to asses with goals of care Patient is critically ill with poor prognosis. CCT 30 mins Yumiko Meeks MD Aug 06, 2016 09:29
--- NOTE | 2016-08-06 10:33 | MG ---
cc: MICHAEL ABDI M.D. Lab No: [id number] Date: 08/06/2016 Age: 76 Sex: M Race: __ REFERRING PHYSICIAN Dr. Meeks TECHNIQUE Room 527 with photic stimulation, intubated. MRI shows large left MCA territory infarct. INDICATIONS Admitted with change in mental status, history of stroke, kidney disease, carotid disease, atrial fibrillation. MEDICATIONS Protonix until drowsy and propofol DESCRIPTION OF RECORD There is quite a bit of artifact seen throughout, however, there is more attenuation in the left hemisphere as opposed to the right. The right hemisphere is more reactive. EKG shows an arrhythmia likely atrial fibrillation. No gross epileptic activity is seen. Photic stimulation does not elicit any driving response. IMPRESSION Abnormal EEG due to slowing over the left hemisphere likely due to a structural lesion such as stroke. No evidence of any epileptiform features in this one recording. Clinical correlation. MD ARIANE Morales/LETHA /7:18 AM /10:30 AM
--- NOTE | 2016-08-06 11:25 | HHI.IDPN ---
Note Infectious Disease Note Patient remains on the ventilator in soft hand restraints. 40% FIO2. Sedated. Unresponsive. MRI shows large left side MCA infarct. Afebrile. Transferred to rehab from [facility] 07/19. On treatment for enterococcal bacteremia. Last blood culture 07/19 at NS negative. PAST MEDICAL HISTORY: 1. COPD. 2. Gastroesophageal reflux disease (GERD). 3. Hypertension. 4. Diabetes mellitus. 5. Arthritis. 6. Chronic atrial fibrillation. 7. Carotid stenosis. PAST SURGICAL HISTORY: 1. Aortic valve replacement. 2. Coronary bypass graft surgery. 3. Hemorrhoidectomy. ALLERGIES: 1. KEFLEX. 2. OXYCODONE. ANTIBIOTIC Ampicillin IV. Current Medications Medications (Trade) Dose Ordered Sig/Ashley Route PRN Reason Start Time Stop Time Status Last Admin Dose Admin Pantoprazole Sodium (Protonix Inj) 40 mg DAILY IV 08/05/16 12:00 08/06/16 09:14 Miscellaneous Information 1 [id number] XX 08/05/16 12:00 08/05/16 10:20 Chlorhexidine Gluconate (Chlorhexidine 2% Cloth) 3 pack Taper DAILY@04 TOP 08/06/16 04:00 08/02/17 03:59 08/06/16 05:11 Chlorhexidine Gluconate 3 pack 3 pack UNSCH PRN [facility] 08/05/16 12:00 Propofol (Diprivan 1000 Mg/100ml Inj) 100 ml @ 0 mls/hr TITRATE IV 08/05/16 12:00 08/06/16 05:14 Dextrose (D50w (Vial) Inj) 25 ml UNSCH PRN IV PUSH HYPOGLYCEMIA-SEE COMMENTS 08/05/16 12:15 Glucagon (Glucagon Inj) 1 mg UNSCH PRN OTHER HYPOGLYCEMIA-SEE COMMENTS 08/05/16 12:15 Insulin Human Regular (NovoLIN R SUPPLEMENTAL SCALE) 1 Q6H SQ 08/05/16 12:15 Hydralazine HCl 10 mg 10 mg Q6H PRN IV PUSH SYS BP GREATER THAN 160 MMHG 08/05/16 12:15 Dextrose/Sodium Chloride 1,000 ml @ 75 mls/hr [id number] IV 08/05/16 16:00 08/06/16 05:13 Ampicillin Sodium/ Sodium Chloride (Ampicillin Inj/ NS Inj) 100 ml @ 300 mls/hr Q6H IV 08/05/16 18:00 08/06/16 05:11 OBJECTIVE: Vital Signs Date Time Temp Pulse Resp B/P Pulse Ox O2 Delivery O2 Flow Rate FiO2 08/06/16 08:18 100 40 08/06/16 08:00 98.6 62 14 170/72 100 08/06/16 08:00 66 08/06/16 08:00 40 08/06/16 06:00 59 08/06/16 04:28 100 40 08/06/16 04:00 40 08/06/16 04:00 98.6 61 14 146/65 100 08/06/16 04:00 61 08/06/16 02:00 61 08/06/16 00:24 100 40 08/06/16 00:00 62 08/06/16 00:00 99.0 62 18 140/63 100 08/06/16 00:00 40 08/05/16 22:00 65 08/05/16 20:17 100 40 08/05/16 20:00 67 08/05/16 20:00 40 08/05/16 20:00 99.2 67 14 168/72 100 08/05/16 18:03 98.2 94 14 172/74 98 08/05/16 18:02 87 08/05/16 17:24 97 Venturi Mask 50 08/05/16 17:07 97 08/05/16 16:58 100 40 08/05/16 16:29 87 08/05/16 16:00 40 08/05/16 16:00 98.2 66 14 158/73 98 08/05/16 15:00 81 16 154/69 100 08/05/16 14:00 98.7 85 16 157/72 100 08/05/16 13:00 98.7 77 16 155/94 100 08/05/16 12:50 99 40 08/05/16 12:30 40 08/05/16 08/05/16 08/06/16 15:00 23:00 07:00 Intake Total 950 ml 498 ml 748 ml Output Total 950 ml 850 ml 825 ml Balance 0 ml -352 ml -77 ml Intake Oral 0 ml IV Total 950 ml 498 ml 748 ml Output Urine Total 400 ml 850 ml 550 ml Stool Total 0 ml Gastric Drainage Total 550 ml 275 ml # Bowel Movements 0 Laboratory Tests Test 08/05/16 08/06/16 13:13 03:52 White Blood Count 12.3 TH/MM3 14.4 TH/MM3 Red Blood Count 2.93 MIL/MM3 2.98 MIL/MM3 Hemoglobin 7.5 GM/DL 7.6 GM/DL Hematocrit 23.3 % 23.6 % Mean Corpuscular Volume 79.6 FL 79.4 FL Mean Corpuscular Hemoglobin 25.7 PG 25.7 PG Mean Corpuscular Hemoglobin 32.2 % 32.4 % Concent Red Cell Distribution Width 19.2 % 19.4 % Platelet Count 241 TH/MM3 261 TH/MM3 Mean Platelet Volume 8.6 FL 8.4 FL Neutrophils (%) (Auto) 84.9 % 77.5 % Lymphocytes (%) (Auto) 4.8 % 5.3 % Monocytes (%) (Auto) 7.8 % 9.9 % Eosinophils (%) (Auto) 1.8 % 5.1 % Basophils (%) (Auto) 0.7 % 2.2 % Neutrophils # (Auto) 10.4 TH/MM3 11.2 TH/MM3 Lymphocytes # (Auto) 0.6 TH/MM3 0.8 TH/MM3 Monocytes # (Auto) 1.0 TH/MM3 1.4 TH/MM3 Eosinophils # (Auto) 0.2 TH/MM3 0.7 TH/MM3 Basophils # (Auto) 0.1 TH/MM3 0.3 TH/MM3 CBC Comment DIFF FINAL DIFF FINAL Differential Comment Laboratory Tests Test 08/05/16 08/06/16 13:13 03:52 Sodium Level 141 MEQ/L 142 MEQ/L Potassium Level 4.0 MEQ/L 3.5 MEQ/L Chloride Level 109 MEQ/L 109 MEQ/L Carbon Dioxide Level 23.0 MEQ/L 23.8 MEQ/L Anion Gap 9 MEQ/L 9 MEQ/L Blood Urea Nitrogen 22 MG/DL 18 MG/DL Creatinine 1.59 MG/DL 1.59 MG/DL Estimat Glomerular Filtration 42 ML/MIN 42 ML/MIN Rate Random Glucose 91 MG/DL 86 MG/DL Calcium Level 8.2 MG/DL 8.2 MG/DL Phosphorus Level 3.0 MG/DL 3.1 MG/DL Magnesium Level 2.1 MG/DL 2.1 MG/DL Total Bilirubin 0.5 MG/DL 0.5 MG/DL Aspartate Amino Transf 24 U/L 30 U/L (AST/SGOT) Alanine Aminotransferase 26 U/L 23 U/L (ALT/SGPT) Alkaline Phosphatase 163 U/L 158 U/L Total Protein 6.3 GM/DL 6.2 GM/DL Albumin 2.0 GM/DL 1.9 GM/DL Microbiology Date/Time Procedure Status Source Growth 08/05/16 12:50 Aerobic Blood Culture - Preliminary Resulted Blood Peripheral NO GROWTH IN 1 DAY 08/05/16 12:50 Anaerobic Blood Culture - Preliminary Resulted Blood Peripheral NO GROWTH IN 1 DAY 08/05/16 12:56 Aerobic Blood Culture - Preliminary Resulted Blood Peripheral NO GROWTH IN 1 DAY 08/05/16 12:56 Anaerobic Blood Culture - Preliminary Resulted Blood Peripheral NO GROWTH IN 1 DAY 08/05/16 13:00 Urine Culture Received Urine Clean Catch Pending IMAGING: Last 72 hours Impressions Head Magnetic Resonance Angiography 08/05/16 0000 Signed Impressions: Service Date/Time: Friday, August 05, 2016 16:12 - CONCLUSION: Severe atherosclerotic vascular disease. Stenosis is not almost 100%% in the right internal carotid with filling of the intracranial portion of this via posterior communicating from the posterior circulation. Left initial M1 segment is abruptly terminated which may represent acute thrombus which would correlate with the left middle cerebral artery stroke on MRI. These abnormal findings could be further evaluated with CTA of the brain and or angiography. Robert Ballard MD Head CT 08/05/16 0000 Signed Impressions: Service Date/Time: Friday, August 05, 2016 10:56 - CONCLUSION: 1. No acute intracranial abnormality. 2. Chronic small vessel ischemic change. Govind Terry Jr., MD Chest X-Ray 08/05/16 0000 Signed Impressions: Service Date/Time: Friday, August 05, 2016 11:49 - CONCLUSION: ET tube above the su. No acute cardiopulmonary process. Robert Ballard MD Carotid Artery Ultrasound 08/05/16 0000 Signed Impressions: Service Date/Time: Friday, August 05, 2016 22:25 - CONCLUSION: 1. Right internal carotid artery occlusion. 2. Moderate plaque at the left carotid bulb region, a significant stenosis is not confirmed on the Doppler interrogation. Carlos Eduardo Jordan MD Brain MRI 08/05/16 0000 Signed Impressions: Service Date/Time: Friday, August 05, 2016 16:12 - CONCLUSION: 1. Large left acute nonhemorrhagic MCA territory infarction. No midline shift. Govind Terry Jr., MD Lower Extremity Ultrasound 07/31/16 0000 Signed Impressions: Service Date/Time: Sunday, July 31, 2016 09:00 - CONCLUSION: Negative for deep venous thrombosis. Dixon Cruz MD FACR Chest X-Ray 07/31/16 0000 Signed Impressions: Service Date/Time: Sunday, July 31, 2016 08:45 - CONCLUSION: Stable appearance with no acute cardiopulmonary disease. Darell Andrews MD Head CT 07/24/1611 Signed Impressions: Service Date/Time: Sunday, July 24, 2016 10:25 - CONCLUSION: No acute disease. Dixon Cruz MD FACR Renal Ultrasound 07/23/16 0000 Signed Impressions: Service Date/Time: Saturday, July 23, 2016 15:41 - CONCLUSION: 1. Bilateral renal cysts. No hydronephrosis. Scotty Miranda MD Ankle X-Ray 07/19/16 0000 Signed Impressions: Service Date/Time: Tuesday, July 19, 2016 18:51 - CONCLUSION: Chronic changes and no evidence for acute fracture. Rashad Hagen MD PHYSICAL EXAMINATION GENERAL: On the vent. Sedated. HEENT: No icterus. No conjunctival erythema. NECK: Supple. LUNGS: Clear breath sounds. HEART: Irregular rate and rhythm. 1-2/6 systolic murmur. ABDOMEN: Bowel sounds present, soft. EXTREMITIES: No clubbing or cyanosis, edema. SKIN: No rash. NEUROLOGIC: Unable to fully assess. IMPRESSION: 1. Enterococcal bacteremia. 2. Acute kidney disease probably exacerbated by aminoglycosides. Slow to improve. worse indices. 3. Elevated liver function tests, uncertain etiology. Resolved. 4. History of aortic valve replacement. Negative transesophageal echocardiogram. 5. Decreased mental status waxing and waning. Patient was somnolent a week ago and then got better. Probably medication effect. Acute mental status change. CVA. 6. Acute Respiratory failure. [place] very poor. RECOMMENDATIONS: 1. Continue Ampicillin IV. Plan is for IV antibiotics x 6 weeks from 07/19/16 date of last positive blood culture. 2. Monitor renal function. Avoid nephrotoxic meds 3. follow cultures. Family deciding on continuity of care and appears to be moving towards withdrawal from vent. Srinath Jean-Baptiste MD Aug 06, 2016 11:25
--- NOTE | 2016-08-06 11:51 | PD.CONS ---
Consult Service Palliative Care Consult Requested By Dr. Bañuelos Primary Care Physician Lupe Marcelo M.D. Reason for Consultation a. To assist with evaluation and management of symptoms including: dyspnea, pain, Debility b. To assist medical decision maker(s) with: better understanding of current medical conditions; weighing benefits/burdens of medical treatment options; making medical treatment decisions. . HPI History of Present Illness This is a 76-year-old gentleman who was admitted to [facility] in [place], [place] on July 13, 2016 after a fall at home.It was determined he had incurred a stroke secondary to embolism. Head CT showed multiple small areas of decreased attenuation suggesting acute infarcts or infarcts of indeterminate age in the right occipital lobe, right thalamus, right parietal, left frontal, and left cerebral hemispheres. The right ICA showed significant occlusion. The left mid internal carotid also showed significant stenosis. MRA of the head correlating these findings. It was reported that he was experiencing generalized weakness which had began approximately one month prior. Initial diagnostics at [facility], he was noted to have sepsis with enterococcus. He has a history of an aortic valve replacement. While the BLADIMIR was negative for vegetation, he was treated empirically for endocarditis due to bacteremia. On July 19 , he transferred to [facility] for comprehensive rehabilitation. At the time he was awake, alert and conversant and was able to participate in physical therapy. Mr. Dias participated in physical therapy for several weeks. However, it was complicated by issues with leukocytosis, anemia, as well his worsening renal function with acute on chronic kidney disease. He had been following with Dr. Guajardo in [place], [place] and had established CKD. In spite of this, he continued to show progress. On August 05, a stroke alert was called after he was found unresponsive with agonal breathing and neuro changes. He is transferred to [facility] and intubated with full mechanical ventilation. MRI of the brain showed an acute large embolic left MCA infarct. He was effectively anticoagulated at the time with Warfarin. At the time of my visit, he appears comfortable, intubated, sedated with deprivan. He will respond to noxious stimulation. No family is present. . . Function/Cognitive Trajectory At this time. Mr. pedersen is sedated on a ventilator and unable to provide any information. However, in light of the rather significant infarct, his ability to communicate or engage in any meaningful activity when he comes off sedation would be highly unlikely. . Review of Systems ROS Limitations: Clinical Condition, Intubated, Unresponsive Constitutional: COMPLAINS OF: Generalized weakness Musculoskeletal: COMPLAINS OF: Stiffness Other ROS: ROS is limited to clinical condition, intubated, and is unresponsive. Information obtained from review of chart and discussion with family Past Family Social History Coded Allergies: Keflex (Verified Allergy, Severe, 10/10/10) Oxycodone (Verified Allergy, Unknown, Hallucinations, 07/19/16) Past Medical History * COPD * Gastroesophageal reflux with history of GI bleed in 1974 * Hypertension. * Diabetes mellitus * Chronic kidney disease. * Arthritis- shoulders. * Chronic atrial fibrillation on anticoagulation. * Carotid stenosis Past Surgical History * Aortic valve replacement * PTCA with stenting x 2 - 1978 and 2010 * Coronary artery bypass graft * Hemorrhoidectomy * Left knee surgery * Bilateral carpal tunnel release * Left ulnar nerve relocation * Left rotator cuff surgery Reported Medications * Bumex * Insulin, * Protonix, * potassium, * Coreg, * hydralazine Current Medications Medications (Trade) Dose Ordered Sig/Ashley Route Start Time Stop Time Status Last Admin (Protonix Inj) 40 mg DAILY IV 08/05/16 12:00 08/06/16 09:14 Miscellaneous Information 1 Q361D XX 08/05/16 12:00 08/05/16 10:20 (Chlorhexidine 2% Cloth) 3 pack Taper DAILY@04 TOP 08/06/16 04:00 08/02/17 03:59 08/06/16 05:11 Chlorhexidine Gluconate 3 pack 3 pack UNSCH PRN TOP 08/05/16 12:00 (Diprivan 1000 Mg/100ml Inj) 100 ml @ 0 mls/hr TITRATE IV 08/05/16 12:00 08/06/16 05:14 (D50w (Vial) Inj) 25 ml UNSCH PRN IV PUSH 08/05/16 12:15 (Glucagon Inj) 1 mg UNSCH PRN OTHER 08/05/16 12:15 (NovoLIN R SUPPLEMENTAL SCALE) 1 Q6H SQ 08/05/16 12:15 Hydralazine HCl 10 mg 10 mg Q6H PRN IV PUSH 08/05/16 12:15 Dextrose/Sodium Chloride 1,000 ml @ 75 mls/hr [id number] IV 08/05/16 16:00 08/06/16 05:13 (Ampicillin Inj/ NS Inj) 100 ml @ 300 mls/hr Q6H IV 08/05/16 18:00 08/06/16 05:11 Family History Father age 79 with throat cancer. Mother at age 87 secondary to old age He has 4 children, 3 sons, Finn, Mike Harper and Vinay who lives in [place]. He also has one daughter, Denise Substance Use Tobacco: Quit smoking in 1962 Alcohol: Occasional use Prescription med abuse: No reported history Illicits: No reported history Psychosocial History Mr. Dias is - 2 yrs ago in April. He lives alone. However, he had a significant other who live next door to him and provided care when he was home. He has 4 children - none are local Spiritual/Cultural Factors No spiritual affiliation per son Living Will: Copy in medical record Health Care Surrogate: Copy in medical record Date completed: 07/20/16 Health Care Surrogate(s): --Finn Dias ( son) [phone] (H) / CELL [phone] - USE THIS NUMBER Documented care wishes: Standard living will Today's verbally stated goals: After a family meeting, the children are in agreement with not pursuing aggressive measures. They clearly indicate that he had stated he did not want to be maintained in a vegetative state and agree with withdrawal of life support. They are in the [facility] with one son in [place]. They expect to arrive in this area on and would wish to proceed with withdrawal of life support on Friday. They have given me permission to speak to his 'girlfriend'/ Neighbor Family/friends goals: To be maintained comfortable. Ethical and Legal Issues None identified at this time Physical Exam Vital Signs Date Time Temp Pulse Resp B/P Pulse Ox O2 Delivery O2 Flow Rate FiO2 08/06/16 08:18 100 40 08/06/16 08:00 98.6 62 14 170/72 100 08/06/16 08:00 66 08/06/16 08:00 40 08/06/16 06:00 59 08/06/16 04:28 100 40 08/06/16 04:00 40 08/06/16 04:00 98.6 61 14 146/65 100 08/06/16 04:00 61 08/06/16 02:00 61 08/06/16 00:24 100 40 08/06/16 00:00 62 08/06/16 00:00 99.0 62 18 140/63 100 08/06/16 00:00 40 08/05/16 22:00 65 08/05/16 20:17 100 40 08/05/16 20:00 67 08/05/16 20:00 40 08/05/16 20:00 99.2 67 14 168/72 100 08/05/16 18:03 98.2 94 14 172/74 98 08/05/16 18:02 87 08/05/16 17:24 97 Venturi Mask 50 08/05/16 17:07 97 08/05/16 16:58 100 40 08/05/16 16:29 87 08/05/16 16:00 40 08/05/16 16:00 98.2 66 14 158/73 98 08/05/16 15:00 81 16 154/69 100 08/05/16 14:00 98.7 85 16 157/72 100 08/05/16 13:00 98.7 77 16 155/94 100 08/05/16 12:50 99 40 08/05/16 12:30 40 08/05/16 08/06/16 19:00 07:00 Intake Total 950 ml 1246 ml Output Total 950 ml 1675 ml Balance 0 ml -429 ml Intake Oral 0 ml IV Total 950 ml 1246 ml Output Urine Total 400 ml 1400 ml Stool Total 0 ml Gastric Drainage Total 550 ml 275 ml # Bowel Movements 0 Exam CONSTITUTIONAL/GENERAL: This is an adequately nourished patient, in no apparent distress. TUBES/LINES/DRAINS: ET tube, Duron catheter. Rectal bag, multiple IV lines SKIN: No jaundice, rashes, or lesions. Ecchymoses on upper extremities. No wounds seen anteriorly. Skin temperature appropriate. Not diaphoretic. HEAD: Atraumatic. Normocephalic. EYES: Pupils equal and round and nonreactive. No scleral icterus. ENT: Mouth is dry. He is an ET tube in place. NECK: Trachea midline. Supple, nontender. No palpable thyroid enlargement or nodularity. CARDIOVASCULAR: Irregular rate and rhythm without murmurs, gallops, or rubs. No JVD. Peripheral pulses symmetric. RESPIRATORY/CHEST: Symmetric, unlabored respirations. Clear to auscultation. Breath sounds equal bilaterally. No wheezes, rales, or rhonchi. GASTROINTESTINAL: Abdomen soft, non-tender, nondistended. No hepato-splenomegaly , or palpable masses. Bowel sounds present. GENITOURINARY: Without palpable bladder distension. Duron catheter in place. MUSCULOSKELETAL: Extremities with mild edema, without clubbing, cyanosis, or edema. No mottling or clubbing. LYMPHATICS: No palpable cervical or supraclavicular adenopathy. NEUROLOGICAL: Sedated - unable to assess neurologic status PSYCHIATRIC: Unable to assess Diagnostic Tests Laboratory Laboratory Tests Test 08/05/16 08/05/16 08/05/16 08/05/16 10:00 11:50 13:00 13:13 Nasal Screen MRSA (PCR) NEGATIVE (NEGATIVE) Blood Gas Puncture Site LT RADIAL Blood Gas Patient Temperature 98.6 Blood Gas HCO3 21 mmol/L (22-26) Blood Gas Base Excess -2.5 mmol/L (-2-2) Blood Gas Oxygen Saturation 97 % (90-100) Arterial Blood pH 7.43 (7.380-7.420) Arterial Blood Partial 32 mmHg (38-42) Pressure CO2 Arterial Blood Partial 168 mmHg Pressure O2 (61-120) Arterial Blood Oxygen Content 14.8 Vol % (12.0-20.0) Arterial Blood 1.4 % (0-4) Carboxyhemoglobin Arterial Blood Methemoglobin 1.1 % (0-2) Blood Gas Hemoglobin 10.6 G/DL (12.0-16.0) Oxygen Delivery Device VENTILATOR Blood Gas Ventilator Setting AC14/500/5PEEP Blood Gas Inspired Oxygen 50 % Urine Color YELLOW (YELLW/STRAW) Urine Turbidity CLEAR (CLEAR) Urine pH 5.5 (5.0-8.5) Urine Specific [place] 1.021 (1.002-1.035) Urine Protein 100 mg/dL (NEG-TRACE) Urine Glucose (UA) NEG mg/dL (NEG) Urine Ketones NEG mg/dL (NEG) Urine Occult Blood NEG (NEG) Urine Nitrite NEG (NEG) Urine Bilirubin NEG (NEG) Urine Urobilinogen LESS THAN 2.0 MG/DL (LESS THAN 2.0) Urine Leukocyte Esterase NEG (NEG) Urine RBC 1 /hpf (0-3) Urine WBC 1 /hpf (0-5) Urine Bacteria RARE /hpf (NONE) Urine Mucus FEW /lpf (OCC) Microscopic Urinalysis Comment CATH-CULTURE IND White Blood Count 12.3 TH/MM3 (4.0-11.0) Red Blood Count 2.93 MIL/MM3 (4.50-5.90) Hemoglobin 7.5 GM/DL (13.0-17.0) Hematocrit 23.3 % (39.0-51.0) Mean Corpuscular Volume 79.6 FL (80.0-100.0) Mean Corpuscular Hemoglobin 25.7 PG (27.0-34.0) Mean Corpuscular Hemoglobin 32.2 % Concent (32.0-36.0) Red Cell Distribution Width 19.2 % (11.6-17.2) Platelet Count 241 TH/MM3 (150-450) Mean Platelet Volume 8.6 FL (7.0-11.0) Neutrophils (%) (Auto) 84.9 % (16.0-70.0) Lymphocytes (%) (Auto) 4.8 % (9.0-44.0) Monocytes (%) (Auto) 7.8 % (0.0-8.0) Eosinophils (%) (Auto) 1.8 % (0.0-4.0) Basophils (%) (Auto) 0.7 % (0.0-2.0) Neutrophils # (Auto) 10.4 TH/MM3 (1.8-7.7) Lymphocytes # (Auto) 0.6 TH/MM3 (1.0-4.8) Monocytes # (Auto) 1.0 TH/MM3 (0-0.9) Eosinophils # (Auto) 0.2 TH/MM3 (0-0.4) Basophils # (Auto) 0.1 TH/MM3 (0-0.2) CBC Comment DIFF FINAL Differential Comment Sodium Level 141 MEQ/L (136-145) Potassium Level 4.0 MEQ/L (3.5-5.1) Chloride Level 109 MEQ/L (98-107) Carbon Dioxide Level 23.0 MEQ/L (21.0-32.0) Anion Gap 9 MEQ/L (5-15) Blood Urea Nitrogen 22 MG/DL (7-18) Creatinine 1.59 MG/DL (0.60-1.30) Estimat Glomerular Filtration 42 ML/MIN (>89) Rate Random Glucose 91 MG/DL (74-106) Calcium Level 8.2 MG/DL (8.5-10.1) Phosphorus Level 3.0 MG/DL (2.5-4.9) Magnesium Level 2.1 MG/DL (1.5-2.5) Total Bilirubin 0.5 MG/DL (0.2-1.0) Aspartate Amino Transf 24 U/L (15-37) (AST/SGOT) Alanine Aminotransferase 26 U/L (12-78) (ALT/SGPT) Alkaline Phosphatase 163 U/L (45-117) Total Protein 6.3 GM/DL (6.4-8.2) Albumin 2.0 GM/DL (3.4-5.0) Test 08/06/16 03:52 White Blood Count 14.4 TH/MM3 (4.0-11.0) Red Blood Count 2.98 MIL/MM3 (4.50-5.90) Hemoglobin 7.6 GM/DL (13.0-17.0) Hematocrit 23.6 % (39.0-51.0) Mean Corpuscular Volume 79.4 FL (80.0-100.0) Mean Corpuscular Hemoglobin 25.7 PG (27.0-34.0) Mean Corpuscular Hemoglobin 32.4 % Concent (32.0-36.0) Red Cell Distribution Width 19.4 % (11.6-17.2) Platelet Count 261 TH/MM3 (150-450) Mean Platelet Volume 8.4 FL (7.0-11.0) Neutrophils (%) (Auto) 77.5 % (16.0-70.0) Lymphocytes (%) (Auto) 5.3 % (9.0-44.0) Monocytes (%) (Auto) 9.9 % (0.0-8.0) Eosinophils (%) (Auto) 5.1 % (0.0-4.0) Basophils (%) (Auto) 2.2 % (0.0-2.0) Neutrophils # (Auto) 11.2 TH/MM3 (1.8-7.7) Lymphocytes # (Auto) 0.8 TH/MM3 (1.0-4.8) Monocytes # (Auto) 1.4 TH/MM3 (0-0.9) Eosinophils # (Auto) 0.7 TH/MM3 (0-0.4) Basophils # (Auto) 0.3 TH/MM3 (0-0.2) CBC Comment DIFF FINAL Differential Comment Prothrombin Time 25.7 SEC (9.8-11.6) Prothromb Time International 2.2 RATIO Ratio Sodium Level 142 MEQ/L (136-145) Potassium Level 3.5 MEQ/L (3.5-5.1) Chloride Level 109 MEQ/L (98-107) Carbon Dioxide Level 23.8 MEQ/L (21.0-32.0) Anion Gap 9 MEQ/L (5-15) Blood Urea Nitrogen 18 MG/DL (7-18) Creatinine 1.59 MG/DL (0.60-1.30) Estimat Glomerular Filtration 42 ML/MIN (>89) Rate Random Glucose 86 MG/DL (74-106) Calcium Level 8.2 MG/DL (8.5-10.1) Phosphorus Level 3.1 MG/DL (2.5-4.9) Magnesium Level 2.1 MG/DL (1.5-2.5) Total Bilirubin 0.5 MG/DL (0.2-1.0) Aspartate Amino Transf 30 U/L (15-37) (AST/SGOT) Alanine Aminotransferase 23 U/L (12-78) (ALT/SGPT) Alkaline Phosphatase 158 U/L (45-117) Total Protein 6.2 GM/DL (6.4-8.2) Albumin 1.9 GM/DL (3.4-5.0) Result Diagram: 08/06/16 0352 08/06/16 0352 Microbiology Microbiology Date/Time Procedure Status Source Growth 08/05/16 12:50 Aerobic Blood Culture Received Blood Peripheral Pending 08/05/16 12:50 Anaerobic Blood Culture Received Blood Peripheral Pending 08/05/16 12:56 Aerobic Blood Culture Received Blood Peripheral Pending 08/05/16 12:56 Anaerobic Blood Culture Received Blood Peripheral Pending 08/05/16 13:00 Urine Culture Received Urine Clean Catch Pending Imaging Last 48 hours Impressions Head Magnetic Resonance Angiography 08/05/16 0000 Signed Impressions: Service Date/Time: Friday, August 05, 2016 16:12 - CONCLUSION: Severe atherosclerotic vascular disease. Stenosis is not almost 100%% in the right internal carotid with filling of the intracranial portion of this via posterior communicating from the posterior circulation. Left initial M1 segment is abruptly terminated which may represent acute thrombus which would correlate with the left middle cerebral artery stroke on MRI. These abnormal findings could be further evaluated with CTA of the brain and or angiography. Robert Ballard MD Head CT 08/05/16 Signed Impressions: Service Date/Time: Friday, August 05, 2016 10:56 - CONCLUSION: 1. No acute intracranial abnormality. 2. Chronic small vessel ischemic change. Govind Terry Jr., MD Chest X-Ray 08/05/16 Signed Impressions: Service Date/Time: Friday, August 05, 2016 11:49 - CONCLUSION: ET tube above the su. No acute cardiopulmonary process. Robert Ballard MD Carotid Artery Ultrasound 08/05/16 Signed Impressions: Service Date/Time: Friday, August 05, 2016 22:25 - CONCLUSION: 1. Right internal carotid artery occlusion. 2. Moderate plaque at the left carotid bulb region, a significant stenosis is not confirmed on the Doppler interrogation. Carlos Eduardo Jordan MD Brain MRI 08/05/16 Signed Impressions: Service Date/Time: Friday, August 05, 2016 16:12 - CONCLUSION: 1. Large left acute nonhemorrhagic MCA territory infarction. No midline shift. Govind Terry Jr., MD Patient/Family Conference Present at Family Conference: Son Finn, who is the healthcare surrogate, Mike Clement - telephone meeting to update them on their father's medical status, answer questions, and discussed care plan. Patrick was clear to indicates that their father had advised all the family that he would not want to remain in a vegetative state. Should anything happen to him. Finn also indicates that he had witnessed other family members go through prolonged deaths. And does not want up for his father. All 4 children are in agreement with withdrawal of life support. The plan is for them to arrive in this area on with proceeding with withdrawal on Friday Family Conference Location: Telephone Issues Discussed: * Palliative care role, purpose, approach * Additional medical, psychosocial, and spiritual history * Patients general health, functional status, and cognitive changes in the months leading up to the current hospitalization * Patient/family understanding of the current medical problems * Patient/family understanding of prognosis * Patients goals of care as best understood from advance directives and/or conversations and/or values * Current medical treatment options and benefits/burdens of those options * Likely scenarios comparing ongoing aggressive care with a transition to comfort measures only * Questions answered to the best of my ability * Palliative care contact information provided Assessment and Plan Disease Oriented Problem List: (1) Stroke due to embolism Comment: Large L MCA infarct involving significant portion of the left hemisphere (2) Acute respiratory failure Comment: Unable to protect airway due to stroke (3) Major neurocognitive disorder due to vascular disease, without behavioral disturbance, severe (4) Hypertension (5) COPD (chronic obstructive pulmonary disease) Symptom Scale: (1) Dyspnea 0-10 Scale: Unable to quantify Comment: Recent large acute CVAunable to protect airway (2) Pain Comment: History of arthritis with replacement to both shoulders, also recent discomfort in left ankle (3) Debility, unspecified 0-10 Scale: Unable to quantify Comment: CVA with dependency for all ADLs currently intubated and sedated Pertinent Non-Medical Issues Psychosocial: None evident at this time. Family appeared to be cooperating with each other. Spiritual: Not involved in a jain community Legal: None identified Ethical issues impacting care: None identified Important Contacts Finn Kathleen Son [phone] (H) [phone] (W) Family has 3- 2 sons and one daughter in [place] and one son in [place].... Has a "Girlfriend" - Tory Espinal [phone] [facility], ... Lives next to patient. The family has given me permission to speak with her and provide clinical information ans she is a valued friend of the family Prognosis Extremely guarded due to severity of left MCA embolic stroke. Will likely not to return to any meaningful level of activity nor cognition. Code Status: No Code Plan Decision Maker: Finn garrido [phone] Code Status: Family agreed to comfort measures only and no code / DNR Family Discussion: Spoke with family via phone on 08/06/16. Plan is that they will arrive in the [facility] area on with tentative plan to withdraw life support on Friday Hospice consult: Symptoms: Dyspnea, Debility post CVA, pain Palliative care phone number provided - will follow during hospital stay. Thank you for the opportunity to participate in the care of Mr. Dias. Attestation To help prompt me to consider important information that might be impacting today's encounter and assessment, information from prior notes written by myself or my colleagues may have been "brought forward" into today's note. My signature on this note, however, is an attestation that I personally performed the exam, history, and/or decision-making noted today, and, unless otherwise indicated, the interactions with patient, family, and staff as well as the review of records all occurred today. I also attest that the listed assessment and stated plan reflect my best clinical judgment today based on the combination of historical information, prior notes, and today's exam/ interactions. When time spent is documented, it refers only to time spent today by the signer, or if indicated, combined time spent today by collaborating physician/nurse practitioner. Lupe Magallanes Aug 06, 2016 11:51
--- NOTE | 2016-08-06 14:36 | EC ---
Study Study Date:08/05/2016 STUDY CONCLUSIONS SUMMARY - Left ventricle: The cavity size was normal. Wall thickness was normal. Systolic function was normal. The estimated ejection fraction was in the range of 50% to 55%. Wall motion was normal; there were no regional wall motion abnormalities. - Aortic valve: Valve area: 1.09cm^2(VTI). Valve area: 1.14cm^2 (Vmax). - Mitral valve: Mild regurgitation. - Pulmonary arteries: PA peak pressure: 71mm Hg (S). If LV function is below 40, please consider prescribing an ACEI or ARB or document rationale for non-use. PROCEDURE DATA STUDY STATUS: Elective. Procedure: Transthoracic echocardiography. Image quality was good. Scanning was performed from the parasternal, apical, and subcostal acoustic windows. Study completion: The patient tolerated the procedure well. Transthoracic echocardiography. M-mode, complete 2D, complete spectral Doppler, and color Doppler. Height: Height: 69in. Weight: Weight: 219.5lb. Body mass index: BMI: 32.5kg/m^2. Body surface area: BSA: 2.15m^2. Patient status: Inpatient. CARDIAC ANATOMY LEFT VENTRICLE: The cavity size was normal. Wall thickness was normal. Systolic function was normal. The estimated ejection fraction was in the range of 50% to 55%. Wall motion was normal; there were no regional wall motion abnormalities. AORTIC VALVE: Trileaflet; normal thickness leaflets. Doppler: Transvalvular velocity was within the normal range. There was no stenosis. No regurgitation. Valve area: 1.09cm^2(VTI). Indexed valve area: 0.51cm^2/m^2 (VTI). Valve area: 1.14cm^2 (Vmax). Indexed valve area: 0.53cm^2/m^2 (Vmax). Mean gradient: 22mm Hg (S). Peak gradient: 46mm Hg (S). AORTA: Aortic root: The aortic root was normal in size. MITRAL VALVE: Structurally normal valve. Doppler: Transvalvular velocity was within the normal range. There was no evidence for stenosis. Mild regurgitation. Peak gradient: 5mm Hg (D). LEFT ATRIUM: The atrium was normal in size. RIGHT VENTRICLE: The cavity size was normal. Wall thickness was normal. PULMONIC VALVE: Doppler: Transvalvular velocity was within the normal range. There was no evidence for stenosis. No regurgitation. TRICUSPID VALVE: Structurally normal valve. Doppler: Transvalvular velocity was within the normal range. Trace regurgitation. PULMONARY ARTERY: The main pulmonary artery was normal-sized. Systolic pressure was within the normal range. RIGHT ATRIUM: The atrium was normal in size. PERICARDIUM: There was no pericardial effusion. SYSTEMIC VEINS: Inferior vena cava: The vessel was normal in size. Patient weight: 219.5lb _Ejection fraction:_ 65-75% _Fractional shortening:_ 32% up to 5Kg 5-11.5Kg 11.6-22.9Kg 23-45Kg 45-57Kg Aortic Root 7-13 <17 13-22 17-27 17-27 LA diam 6-13 <23 24-38 33-47 37-40 RVID 10-17 7-15 7-15 7-18 8-17 LVIDd 12-22 <32 24-38 33-47 37-40 LVPW 2-4 3-6 5-7 6-8 7-8 IVS 2-4 3-6 5-7 6-8 7-8 BASIC MEASUREMENTS ADULT NORMAL Left ventricle LV internal dimension, ED, chordal *54.8 mm 43-52 level, PLAX LV internal dimension, ES, chordal *42.3 mm 23-38 level, PLAX Fractional shortening, chordal level, *23 % >29 PLAX LV posterior wall thickness, ED 9.96 mm IVS/LVPW ratio, ED 1 <1.3 Ventricular septum Septal thickness, ED 9.92 mm Aorta Root diameter, ED 34 mm Left atrium Anterior-posterior dimension 45 mm Anterior-posterior dimension index 2.09 cm/m^2 <2.2 DOPPLER MEASUREMENTS ADULT NORMAL Main pulmonary artery Pressure, S *71 mm Hg =30 Aortic valve Peak velocity, S 339 cm/s Mean velocity, S 205 cm/s VTI, S 61.3 cm Mean gradient, S 22 mm Hg Peak gradient, S 46 mm Hg Valve area, VTI 1.09 cm^2 Valve area index, VTI 0.51 cm^2/m^2 Valve area, Vmax 1.14 cm^2 Valve area index, Vmax 0.53 cm^2/m^2 Mitral valve Peak E-wave velocity 113 cm/s Peak gradient, D 5 mm Hg Tricuspid valve Regurgitant peak velocity 385 cm/s Peak RV-RA gradient, S 59 mm Hg Maximal regurgitant velocity 385 cm/s Systemic veins Estimated CVP 10 mm Hg Right ventricle RV pressure, S *72 mm Hg <30 Pulmonic valve Peak velocity, S 44 cm/s LEGEND: Mean values are shown as u=mean value. Asterisk (*) hoffmann values outside specified normal range. Prepared and signed by Gorge Lo [id number]
--- NOTE | 2016-08-06 14:53 | HHI.PR ---
Subjective Remarks no changes neurologically family to decide code status and if wants ongoing care or palliative. Objective Vital Signs Date Time Temp Pulse Resp B/P Pulse Ox O2 Delivery O2 Flow Rate FiO2 08/06/16 14:09 69 08/06/16 14:05 100 40 08/06/16 12:30 68 08/06/16 12:29 40 08/06/16 12:15 100 40 08/06/16 12:10 99.0 69 14 172/75 100 08/06/16 08:18 100 40 08/06/16 08:00 98.6 62 14 170/72 100 08/06/16 08:00 66 08/06/16 08:00 40 08/06/16 06:00 59 08/06/16 04:28 100 40 08/06/16 04:00 40 08/06/16 04:00 98.6 61 14 146/65 100 08/06/16 04:00 61 08/06/16 02:00 61 08/06/16 00:24 100 40 08/06/16 00:00 62 08/06/16 00:00 99.0 62 18 140/63 100 08/06/16 00:00 40 08/05/16 22:00 65 08/05/16 20:17 100 40 08/05/16 20:00 67 08/05/16 20:00 40 08/05/16 20:00 99.2 67 14 168/72 100 08/05/16 18:03 98.2 94 14 172/74 98 08/05/16 18:02 87 08/05/16 17:24 97 Venturi Mask 50 08/05/16 17:07 97 08/05/16 16:58 100 40 08/05/16 16:29 87 08/05/16 16:00 40 08/05/16 16:00 98.2 66 14 158/73 98 08/05/16 15:00 81 16 154/69 100 I/O 08/05/16 08/05/16 08/05/16 08/06/16 08/06/16 08/06/16 07:00 15:00 23:00 07:00 15:00 23:00 Intake Total 950 ml 498 ml 748 ml 750 ml Output Total 950 ml 850 ml 825 ml 675 ml Balance 0 ml -352 ml -77 ml 75 ml Intake Oral 0 ml IV Total 950 ml 498 ml 748 ml 750 ml Output Urine Total 400 ml 850 ml 550 ml 675 ml Stool Total 0 ml Gastric Drainage Total 550 ml 275 ml # Bowel Movements 0 intub vent pp pupils reactive not following w/d left leg to noxious Result Diagram: 08/06/1635108/06/16351 Assessment and Plan Assessment and Plan large left mca stroke -extremely poor prognosis for meaningful neurological recovery. -palliative on the case. -cont current tx for now. Verónica Powell MD Aug 06, 2016 14:53
[2016-08-06] MEDS: hydrALAZINE HCL 20 MG/ML VIAL IV PUSH PRN (20:08)
[2016-08-07] VITALS (15 sets, daily range): BP systolic 134–173; BP diastolic 63–77; PULSE 57–69; RESP 18–24; TEMP 97.7–98.5; O2SAT 99–100
[2016-08-07] MEDS: PROPOFOL 1000 MG/100 ML INJ 100 ML IV SCH ×4 (00:02→14:49)
[2016-08-07] MEDS: AMPICILLIN 2 GM/NS 100 ML IV SCH ×8 (00:02→18:30)
[2016-08-07] MEDS: CHLORHEXIDINE GLUCONATE 2 % 1 PACK (2 CLOTHS) TOP SCH (00:02)
[2016-08-07] MEDS: INSULIN NovoLIN REGULAR SUPPLEMENTAL SCALE SQ SCH ×4 (00:15→18:15)
[2016-08-07] MEDS: RESP: ALBUTEROL 2.5 MG/IPRATROPIUM 0.5 MG NEB (SCH) INH ×4 (03:59→21:19)
[2016-08-07 06:16] LABS: AUTOMATED NEUTROPHIL # 11.2 TH/MM3 (1.8-7.7); BASOPHIL # 0.1 TH/MM3 (0-0.2); EOSINOPHIL # 0.7 TH/MM3 (0-0.4); EOSINOPHIL % 4.6 % (0.0-4.0); HEMATOCRIT 25.2 % (39.0-51.0); HEMO FLAGS DIFF FINAL; LYMPH % 4.8 % (9.0-44.0); LYMPHOCYTE # 0.7 TH/MM3 (1.0-4.8); MEAN CORPUSCULAR HEMOGLOBIN 25.6 PG (27.0-34.0); MEAN CORPUSCULAR HGB CONC 32.4 % (32.0-36.0); MONO % 11.1 % (0.0-8.0); NEUT % 78.5 % (16.0-70.0); PLATELET COUNT 260 TH/MM3 (150-450); RED CELL DISTRIBUTION WIDTH 19.4 % (11.6-17.2); WHITE BLOOD COUNT 14.2 TH/MM3 (4.0-11.0)
[2016-08-07 06:46] LABS: BICARBONATE 23.8 MEQ/L (21.0-32.0); MAGNESIUM 2.2 MG/DL (1.5-2.5); POTASSIUM 3.2 MEQ/L (3.5-5.1)
[2016-08-07 06:50] LABS: INTERNATIONAL NORMALIZED RATIO 1.9 RATIO; PROTHROMBIN TIME - PATIENT 21.2 SEC (9.8-11.6)
[2016-08-07] MEDS: DEXT 5%-NACL 0.9% 1000 ML INJ 1,000 ML IV SCH ×2 (08:29→21:20)
[2016-08-07] MEDS: PANTOPRAZOLE SODIUM 40 MG VIAL IV SCH (08:29)
[2016-08-07] MEDS ORDERED: POTASSIUM PHOSPHATE INJ 30 MMOL in SODIUM CHLOR 0.9% 250 ML INJ 250 ML IV PRN (10:30)
[2016-08-07] MEDS ORDERED: POTASSIUM PHOSPHATE MONOBASIC 500 MG TAB PO PRN (10:30)
[2016-08-07] MEDS ORDERED: POTASSIUM CL 40 MEQ/30 ML LIQ UDC PO/TUBE PRN ×2 (10:30)
[2016-08-07] MEDS ORDERED: MAGNESIUM OXIDE 400 MG TAB PO PRN (10:30)
[2016-08-07] MEDS ORDERED: POTASSIUM PHOSPHATE MONOBASIC 500 MG TAB PO/TUBE PRN (10:30)
[2016-08-07] MEDS ORDERED: POTASSIUM CHLOR 40 MEQ PREMIX 100 ML IV PRN ×2 (10:30)
[2016-08-07] MEDS ORDERED: POTASSIUM CHLOR 20 MEQ PREMIX 100 ML IV PRN ×2 (10:30)
[2016-08-07] MEDS ORDERED: MAGNESIUM SULFATE INJ 2 GM in SODIUM CHLORIDE 0.9% INJ 96 ML IV PRN (10:30)
[2016-08-07] MEDS ORDERED: MAGNESIUM SULFATE INJ 4 GM in SODIUM CHLORIDE 0.9% INJ 92 ML IV PRN (10:30)
[2016-08-07] MEDS ORDERED: SODIUM PHOSPHATE INJ 30 MMOL in SODIUM CHLOR 0.9% 250 ML INJ 240 ML IV PRN (10:30)
--- NOTE | 2016-08-07 10:31 | HHI.CCPN ---
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 The patient was recently diagnosed with Enterococcus bacteremia and was started on IV antibiotics in the form of ampicillin and gentamicin. 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 He had a CT scan of the brain which showed multiple small areas of acute infarcts involving the right occipital lobe, right thalamic, right parietal, left frontal and left cerebellar hemisphere. MRI of the brain was obtained which also showed multiple acute infarcts and MRA of the head showed findings compatible with occlusion of the right internal carotid artery. He was admitted to [facility] for stroke rehab. Mary Lou was called earlier today as a Stroke Alert after the patient was found unresponsive with agonal breathing and neuro changes. He was subsequently transferred [place] [facility] [place] was [place]ub[place] and placed on full mechanical ventilation. A STAT CT scan of the brain was obtained which showed chronic small-vessel ischemic changes, otherwise no acute intracranial abnormality. 08/06 Patient is sedated with Diprivan and sedated, Afebrile. MRI brain showed large left MCA non hemorrhagic infarct. 08/07 Patient is sedated with Diprivan and intubated. T:99.9 last night. Objective Vital Signs Date Time Temp Pulse Resp B/P Pulse Ox O2 Delivery O2 Flow Rate FiO2 08/07/16 09:05 99 40 08/07/16 06:00 58 08/07/16 04:00 97.7 20 134/63 08/05/16 17:24 Venturi Mask Intake and Output 08/06/16 08/06/16 08/07/16 08:00 16:00 00:00 Intake Total 748 ml 750 ml Output Total 825 ml 675 ml Balance -77 ml 75 ml Result Diagram: 08/07/16 0541 08/07/16 05 Other Results Laboratory Tests Test 08/07/16 05:41 White Blood Count 14.2 TH/MM3 Red Blood Count 3.20 MIL/MM3 Hemoglobin 8.2 GM/DL Hematocrit 25.2 % Mean Corpuscular Volume 79.0 FL Mean Corpuscular Hemoglobin 25.6 PG Mean Corpuscular Hemoglobin 32.4 % Concent Red Cell Distribution Width 19.4 % Platelet Count 260 TH/MM3 Mean Platelet Volume 8.4 FL Neutrophils (%) (Auto) 78.5 % Lymphocytes (%) (Auto) 4.8 % Monocytes (%) (Auto) 11.1 % Eosinophils (%) (Auto) 4.6 % Basophils (%) (Auto) 1.0 % Neutrophils # (Auto) 11.2 TH/MM3 Lymphocytes # (Auto) 0.7 TH/MM3 Monocytes # (Auto) 1.6 TH/MM3 Eosinophils # (Auto) 0.7 TH/MM3 Basophils # (Auto) 0.1 TH/MM3 CBC Comment DIFF FINAL Differential Comment Prothrombin Time 21.2 SEC Prothromb Time International 1.9 RATIO Ratio Sodium Level 142 MEQ/L Potassium Level 3.2 MEQ/L Chloride Level 109 MEQ/L Carbon Dioxide Level 23.8 MEQ/L Anion Gap 9 MEQ/L Blood Urea Nitrogen 13 MG/DL Creatinine 1.32 MG/DL Estimat Glomerular Filtration 52 ML/MIN Rate Random Glucose 157 MG/DL Calcium Level 8.0 MG/DL Phosphorus Level 3.4 MG/DL Magnesium Level 2.2 MG/DL Imaging Last Impressions Head Magnetic Resonance Angiography 08/05/16 Signed Impressions: Service Date/Time: Friday, August 05, 2016 16:12 - CONCLUSION: Severe atherosclerotic vascular disease. Stenosis is not almost 100%% in the right internal carotid with filling of the intracranial portion of this via posterior communicating from the posterior circulation. Left initial M1 segment is abruptly terminated which may represent acute thrombus which would correlate with the left middle cerebral artery stroke on MRI. These abnormal findings could be further evaluated with CTA of the brain and or angiography. Robert Ballard MD Head CT 08/05/16 Signed Impressions: Service Date/Time: Friday, August 05, 2016 10:56 - CONCLUSION: 1. No acute intracranial abnormality. 2. Chronic small vessel ischemic change. Govind Terry Jr., MD Chest X-Ray 08/05/16 Signed Impressions: Service Date/Time: Friday, August 05, 2016 11:49 - CONCLUSION: ET tube above the su. No acute cardiopulmonary process. Robert Ballard MD Carotid Artery Ultrasound 08/05/16 Signed Impressions: Service Date/Time: Friday, August 05, 2016 22:25 - CONCLUSION: 1. Right internal carotid artery occlusion. 2. Moderate plaque at the left carotid bulb region, a significant stenosis is not confirmed on the Doppler interrogation. Carlos Eduardo Jordan MD Brain MRI 08/05/16 0000 Signed Impressions: Service Date/Time: Friday, August 05, 2016 16:12 - CONCLUSION: 1. Large left acute nonhemorrhagic MCA territory infarction. No midline shift. Govind Terry Jr., MD Objective Remarks GENERAL: Patient is 76 yo critically ill sedated and intubated. SKIN: Warm and dry. HEAD: Normocephalic. EYES: No scleral icterus. No injection or drainage. NECK: Supple, trachea midline. No JVD or lymphadenopathy. Orally intubated CARDIOVASCULAR: Regular rate and rhythm without murmurs, gallops, or rubs. RESPIRATORY: Breath sounds equal bilaterally. No accessory muscle use. GASTROINTESTINAL: Abdomen soft, non-tender, nondistended. MUSCULOSKELETAL: No cyanosis, or edema. Neuro: sedated. A/P Assessment and Plan 1. VDRF 2. Encephalopathy. 3. New left MCA non hemorrhagic infarct. 4. Recent Enterococcus bacteremia. 5. Chronic kidney disease. 6. Atrial fibrillation on Coumadin. 7. Hypertension. 8. Anemia 9 Hx CVA 10 Leukocytosis Plan Neuro: on Diprivan infusion for sedation and vent synchrony. Daily sedation vacation. Monitor neuro status Neuro: Dr. Powell 08/05: CT brain: no evidence of any acute intracranial abnormality. 08/05: MRI brain: New left MCA non hemorrhagic infarct. 08/05: MRA brain: Severe atherosclerotic vascular disease. Stenosis is not almost 100%% in the right internal carotid with filling of the intracranial portion of this via posterior communicating from the posterior circulation. 08/05: Carotid Doppler US: Right internal carotid artery occlusion. Moderate plaque at the left carotid bulb region, EEG: Slowing over left hemisphere, no epileptiform features. Pulm: Continue with vent support and maintain sats above 92%. Bronchodilators, ICU vent bundle. CV: Monitor HR and BP and maintain MAP >65 mmHg. Echo showed EF 50-55%, no RWMA : Monitor renal function I's and O's and avoid nephrotoxins. Electrolytes replacement per protocol. WIll need K replacement today. On D5 NS at 75 per hour. GI: on Protonix 40 mg IV daily for GI prophylaxis On TF-Glucerna 1.5 with goal rate of 45 per hour. ID: Continue with abx per ID- Ampicillin. Follow up on blood and urine cxs CXR: No acute cardiopulmonary process. Endo: SSI with Accu-Chek q. 6-hour if needed for glycemic control. Heme: Monitor CBC and coags - INR 1.9 today GI prophylaxis with Protonix 40 mg daily and DVT prophylaxis with SCDs and patient was on Coumadin with INR: 1.9 today. Coumadin on hold per neuro due to increased risk of hemorrhagic conversion. Palliative care is on case. Palliative care discussed with family and plan to transition to comfort care on Friday once all his children arrives from out of town. Patient is critically ill with poor prognosis. CCT 30 mins Yumiko Meeks MD Aug 07, 2016 10:31
[2016-08-07] MEDS: hydrALAZINE HCL 20 MG/ML VIAL IV PUSH PRN (15:41)
--- NOTE | 2016-08-07 15:59 | HHI.IDPN ---
Subjective Subjective Remarks ID COVERAGE Chart reviewed Patient initially admitted at [facility] for generalized weakness. Found to have Enterococcus in BC, BLADIMIR negative, S/P AVR. Imaging studies showed multiple evidence of prior CVA. He stabilized, and transferred to [facility] for comprehensive rehabilitation. He was on IV ampicillin when he was transferred with plans to treat him for endocarditis and to get 6 weeks of IV antibiotics. He was on vancomycin, and was changed to ampicillin in the [facility]. On August 05, stroke alert was found, and he was transferred to the intensive care unit and intubated. Imaging studies showed a large left MCA infarct. Patient currently is sedated on the vent. He is on tube feedings. Blood pressure is okay. Has some low-grade temps. His last blood culture in [facility] was from July 19 and those are all negative. He's had multiple blood cultures done here and they are all negative. Discussed with RN He is currently afebrile Blood pressure is okay He is getting tube feedings and seems to be tolerating When sedation gets turned off, he really does not follow commands Family is supposed to be coming and deciding on further care His chest x-ray is normal WBC is elevated Creatinine is slightly elevated, but he has good urine output Antibiotics Ampicillin Lines LUE PICC Past Medical History COPD. Gastroesophageal reflux disease (GERD). Hypertension. Diabetes mellitus. Arthritis. Chronic atrial fibrillation. Carotid stenosis Aortic valve replacement. Coronary bypass graft surgery. Hemorrhoidectomy. Allergies: Coded Allergies: Keflex (Verified Allergy, Severe, 10/10/10) Oxycodone (Verified Allergy, Unknown, Hallucinations, 07/19/16) Objective . Vital Signs Date Time Temp Pulse Resp B/P Pulse Ox O2 Delivery O2 Flow Rate FiO2 08/07/16 12:39 100 40 08/07/16 09:05 99 40 08/07/16 06:00 58 08/07/16 04:01 100 40 08/07/16 04:00 57 08/07/16 04:00 40 08/07/16 04:00 97.7 57 20 134/63 99 08/07/16 02:00 60 08/07/16 01:46 99 40 08/07/16 00:00 98.5 69 23 143/63 99 08/07/16 00:00 69 08/07/16 00:00 40 08/06/16 22:00 78 08/06/16 21:12 98 40 08/06/16 20:00 99.9 67 14 176/79 100 08/06/16 20:00 40 08/06/16 20:00 67 08/06/16 18:21 66 08/06/16 17:48 99.0 66 14 170/73 100 08/06/16 17:47 40 08/06/16 16:24 100 40 08/06/16 16:00 63 08/06/16 08/06/16 08/07/16 15:00 23:00 07:00 Intake Total 750 ml 2699 ml Output Total 675 ml 600 ml Balance 75 ml 2099 ml IV Total 750 ml 2520 ml Tube Feeding 179 ml Output Urine Total 675 ml 600 ml . Laboratory Tests Test 08/06/16 08/07/16 03:52 05:41 White Blood Count 14.4 TH/MM3 14.2 TH/MM3 Red Blood Count 2.98 MIL/MM3 3.20 MIL/MM3 Hemoglobin 7.6 GM/DL 8.2 GM/DL Hematocrit 23.6 % 25.2 % Mean Corpuscular Volume 79.4 FL 79.0 FL Mean Corpuscular Hemoglobin 25.7 PG 25.6 PG Mean Corpuscular Hemoglobin 32.4 % 32.4 % Concent Red Cell Distribution Width 19.4 % 19.4 % Platelet Count 261 TH/MM3 260 TH/MM3 Mean Platelet Volume 8.4 FL 8.4 FL Neutrophils (%) (Auto) 77.5 % 78.5 % Lymphocytes (%) (Auto) 5.3 % 4.8 % Monocytes (%) (Auto) 9.9 % 11.1 % Eosinophils (%) (Auto) 5.1 % 4.6 % Basophils (%) (Auto) 2.2 % 1.0 % Neutrophils # (Auto) 11.2 TH/MM3 11.2 TH/MM3 Lymphocytes # (Auto) 0.8 TH/MM3 0.7 TH/MM3 Monocytes # (Auto) 1.4 TH/MM3 1.6 TH/MM3 Eosinophils # (Auto) 0.7 TH/MM3 0.7 TH/MM3 Basophils # (Auto) 0.3 TH/MM3 0.1 TH/MM3 CBC Comment DIFF FINAL DIFF FINAL Differential Comment Laboratory Tests Test 08/06/16 08/07/16 08/07/16 03:52 05:41 11:14 Sodium Level 142 MEQ/L 142 MEQ/L Potassium Level 3.5 MEQ/L 3.2 MEQ/L Chloride Level 109 MEQ/L 109 MEQ/L Carbon Dioxide Level 23.8 MEQ/L 23.8 MEQ/L Anion Gap 9 MEQ/L 9 MEQ/L Blood Urea Nitrogen 18 MG/DL 13 MG/DL Creatinine 1.59 MG/DL 1.32 MG/DL Estimat Glomerular Filtration 42 ML/MIN 52 ML/MIN Rate Random Glucose 86 MG/DL 157 MG/DL Calcium Level 8.2 MG/DL 8.0 MG/DL Phosphorus Level 3.1 MG/DL 3.4 MG/DL 3.0 MG/DL Magnesium Level 2.1 MG/DL 2.2 MG/DL Total Bilirubin 0.5 MG/DL Aspartate Amino Transf 30 U/L (AST/SGOT) Alanine Aminotransferase 23 U/L (ALT/SGPT) Alkaline Phosphatase 158 U/L Total Protein 6.2 GM/DL Albumin 1.9 GM/DL Microbiology Date/Time Procedure Status Source Growth 08/05/16 12:50 Aerobic Blood Culture - Preliminary Resulted Blood Peripheral NO GROWTH IN 2 DAYS 08/05/16 12:50 Anaerobic Blood Culture - Preliminary Resulted Blood Peripheral NO GROWTH IN 2 DAYS 08/05/16 12:56 Aerobic Blood Culture - Preliminary Resulted Blood Peripheral NO GROWTH IN 2 DAYS 08/05/16 12:56 Anaerobic Blood Culture - Preliminary Resulted Blood Peripheral NO GROWTH IN 2 DAYS 08/05/16 13:00 Urine Culture - Final Complete Urine Clean Catch NO GROWTH IN 48 HOURS. Imaging Last Impressions Head Magnetic Resonance Angiography 08/05/16 Signed Impressions: Service Date/Time: Friday, August 05, 2016 16:12 - CONCLUSION: Severe atherosclerotic vascular disease. Stenosis is not almost 100%% in the right internal carotid with filling of the intracranial portion of this via posterior communicating from the posterior circulation. Left initial M1 segment is abruptly terminated which may represent acute thrombus which would correlate with the left middle cerebral artery stroke on MRI. These abnormal findings could be further evaluated with CTA of the brain and or angiography. Robert Ballard MD Head CT 08/05/16 Signed Impressions: Service Date/Time: Friday, August 05, 2016 10:56 - CONCLUSION: 1. No acute intracranial abnormality. 2. Chronic small vessel ischemic change. Govind Terry Jr., MD Chest X-Ray 2/20/17 0000 Signed Impressions: Service Date/Time: Friday, August 05, 2016 11:49 - CONCLUSION: ET tube above the su. No acute cardiopulmonary process. Robert Ballard MD Carotid Artery Ultrasound 08/05/16 0000 Signed Impressions: Service Date/Time: Friday, August 05, 2016 22:25 - CONCLUSION: 1. Right internal carotid artery occlusion. 2. Moderate plaque at the left carotid bulb region, a significant stenosis is not confirmed on the Doppler interrogation. Carlos Eduardo Jordan MD Brain MRI 08/05/16 0000 Signed Impressions: Service Date/Time: Friday, August 05, 2016 16:12 - CONCLUSION: 1. Large left acute nonhemorrhagic MCA territory infarction. No midline shift. Govind Terry Jr., MD Physical Exam GENERAL: On the vent. Sedated. NAD SKIN: Warm, dry, no rash, no embolic lesions HEENT: Deal conjunctivae, no petechia or hemorrhage. No icterus. No conjunctival injection. He is orally intubated. NECK: Supple. LUNGS: Coarse breath sounds bilaterally, decreased at the bases. HEART: Irregular rate and rhythm. 1-2/6 systolic murmur. No rub. ABDOMEN: Globular abdomen, bowel sounds are hypoactive. Soft and not distended , no reaction to deep palpation. EXTREMITIES: No clubbing or cyanosis, edema. NEUROLOGIC: Unable to fully assess. Sedated LINE: PICC LUE with no evidence of infection : Duron in place, urine looks clear Assessment & Plan Remarks IMPRESSION: Enterococcal bacteremia. - BLADIMIR negative - he has had previous AVR LMCA CVA Acute kidney disease probably exacerbated by aminoglycosides. Slow to improve. worse indices. Elevated liver function tests, uncertain etiology. Resolved. Acute Respiratory failure. RECOMMENDATIONS: Continue Ampicillin IV. Plan is for IV antibiotics x 6 weeks from 07/19/16 date of last positive blood culture. Monitor renal function. Avoid nephrotoxic meds Follow cultures. Family deciding on continuity of care and appears to be moving towards withdrawal from vent. Monitor progress D/W Jeannie Lewis MD Aug 07, 2016 15:59
--- NOTE | 2016-08-07 16:50 | HHI.HCPN ---
Reason for visit a. To assist with evaluation and management of symptoms including: dyspnea, pain, Debility b. To assist medical decision maker(s) with: better understanding of current medical conditions; weighing benefits/burdens of medical treatment options; making medical treatment decisions. . Subjective/Interval History At the time of my visit, he appears comfortable, intubated, sedated with Diprivan now at 16.6/hr. His Blood pressures remain are more normalized. He remains in a controlled rate A Fib. He remains with elevated WBC's . Family/friend interactions I received a phone call from his son, Finn this afternoon. They have arrived in town. I have asked to meet with me tomorrow. Advance Directives Living Will: Copy in medical record Health Care Surrogate: Copy in medical record Advance Directive Specifics Date completed: 07/20/16 Health Care Surrogate(s): --Finn Dias ( son) [phone] (H) / CELL [phone] - USE THIS NUMBER Documented care wishes: Standard living will Objective Vital Signs Date Time Temp Pulse Resp B/P Pulse Ox O2 Delivery O2 Flow Rate FiO2 08/07/16 12:39 100 40 08/07/16 09:05 99 40 08/07/16 06:00 58 08/07/16 04:01 100 40 08/07/16 04:00 57 08/07/16 04:00 40 08/07/16 04:00 97.7 57 20 134/63 99 08/07/16 02:00 60 08/07/16 01:46 99 40 08/07/16 00:00 98.5 69 23 143/63 99 08/07/16 00:00 69 08/07/16 00:00 40 08/06/16 22:00 78 08/06/16 21:12 98 40 08/06/16 20:00 99.9 67 14 176/79 100 08/06/16 20:00 40 08/06/16 20:00 67 08/06/16 18:21 66 08/06/16 17:48 99.0 66 14 170/73 100 08/06/16 17:47 40 Intake & Output 08/07/16 08/07/16 07:00 19:00 Intake Total 2699 ml Output Total 600 ml Balance 2099 ml IV Total 2520 ml Tube Feeding 179 ml Output Urine Total 600 ml Physical Exam CONSTITUTIONAL/GENERAL: This is an adequately nourished patient, in no apparent distress. TUBES/LINES/DRAINS: ET tube, Duron catheter. Rectal bag, multiple IV lines SKIN: No jaundice, rashes, or lesions. Ecchymoses on upper extremities. No wounds seen anteriorly. Skin temperature appropriate. Not diaphoretic. HEAD: Atraumatic. Normocephalic. EYES: Pupils equal and round and nonreactive. No scleral icterus. ENT: Mouth is dry. He is an ET tube in place. NECK: Trachea midline. Supple, nontender. No palpable thyroid enlargement or nodularity. CARDIOVASCULAR: Irregular rate and rhythm without murmurs, gallops, or rubs. No JVD. Peripheral pulses symmetric. RESPIRATORY/CHEST: Symmetric, unlabored respirations. Clear to auscultation. Breath sounds equal bilaterally. No wheezes, rales, or rhonchi. GASTROINTESTINAL: Abdomen soft, non-tender, nondistended. No hepato-splenomegaly , or palpable masses. Bowel sounds present. GENITOURINARY: Without palpable bladder distension. Duron catheter in place. MUSCULOSKELETAL: Extremities with mild edema, without clubbing, cyanosis, or edema. No mottling or clubbing. LYMPHATICS: No palpable cervical or supraclavicular adenopathy. NEUROLOGICAL: Sedated - unable to assess neurologic status PSYCHIATRIC: Unable to assess Diagnostic Tests Laboratory Laboratory Tests Test 08/05/16 08/05/16 08/05/16 08/05/16 10:00 11:50 13:00 13:13 Nasal Screen MRSA (PCR) NEGATIVE (NEGATIVE) Blood Gas Puncture Site LT RADIAL Blood Gas Patient Temperature 98.6 Blood Gas HCO3 21 mmol/L (22-26) Blood Gas Base Excess -2.5 mmol/L (-2-2) Blood Gas Oxygen Saturation 97 % (90-100) Arterial Blood pH 7.43 (7.380-7.420) Arterial Blood Partial 32 mmHg (38-42) Pressure CO2 Arterial Blood Partial 168 mmHg Pressure O2 (61-120) Arterial Blood Oxygen Content 14.8 Vol % (12.0-20.0) Arterial Blood 1.4 % (0-4) Carboxyhemoglobin Arterial Blood Methemoglobin 1.1 % (0-2) Blood Gas Hemoglobin 10.6 G/DL (12.0-16.0) Oxygen Delivery Device VENTILATOR Blood Gas Ventilator Setting AC14/500/5PEEP Blood Gas Inspired Oxygen 50 % Urine Color YELLOW (YELLW/STRAW) Urine Turbidity CLEAR (CLEAR) Urine pH 5.5 (5.0-8.5) Urine Specific [place] 1.021 (1.002-1.035) Urine Protein 100 mg/dL (NEG-TRACE) Urine Glucose (UA) NEG mg/dL (NEG) Urine Ketones NEG mg/dL (NEG) Urine Occult Blood NEG (NEG) Urine Nitrite NEG (NEG) Urine Bilirubin NEG (NEG) Urine Urobilinogen LESS THAN 2.0 MG/DL (LESS THAN 2.0) Urine Leukocyte Esterase NEG (NEG) Urine RBC 1 /hpf (0-3) Urine WBC 1 /hpf (0-5) Urine Bacteria RARE /hpf (NONE) Urine Mucus FEW /lpf (OCC) Microscopic Urinalysis Comment CATH-CULTURE IND White Blood Count 12.3 TH/MM3 (4.0-11.0) Red Blood Count 2.93 MIL/MM3 (4.50-5.90) Hemoglobin 7.5 GM/DL (13.0-17.0) Hematocrit 23.3 % (39.0-51.0) Mean Corpuscular Volume 79.6 FL (80.0-100.0) Mean Corpuscular Hemoglobin 25.7 PG (27.0-34.0) Mean Corpuscular Hemoglobin 32.2 % Concent (32.0-36.0) Red Cell Distribution Width 19.2 % (11.6-17.2) Platelet Count 241 TH/MM3 (150-450) Mean Platelet Volume 8.6 FL (7.0-11.0) Neutrophils (%) (Auto) 84.9 % (16.0-70.0) Lymphocytes (%) (Auto) 4.8 % (9.0-44.0) Monocytes (%) (Auto) 7.8 % (0.0-8.0) Eosinophils (%) (Auto) 1.8 % (0.0-4.0) Basophils (%) (Auto) 0.7 % (0.0-2.0) Neutrophils # (Auto) 10.4 TH/MM3 (1.8-7.7) Lymphocytes # (Auto) 0.6 TH/MM3 (1.0-4.8) Monocytes # (Auto) 1.0 TH/MM3 (0-0.9) Eosinophils # (Auto) 0.2 TH/MM3 (0-0.4) Basophils # (Auto) 0.1 TH/MM3 (0-0.2) CBC Comment DIFF FINAL Differential Comment Sodium Level 141 MEQ/L (136-145) Potassium Level 4.0 MEQ/L (3.5-5.1) Chloride Level 109 MEQ/L (98-107) Carbon Dioxide Level 23.0 MEQ/L (21.0-32.0) Anion Gap 9 MEQ/L (5-15) Blood Urea Nitrogen 22 MG/DL (7-18) Creatinine 1.59 MG/DL (0.60-1.30) Estimat Glomerular Filtration 42 ML/MIN (>89) Rate Random Glucose 91 MG/DL (74-106) Calcium Level 8.2 MG/DL (8.5-10.1) Phosphorus Level 3.0 MG/DL (2.5-4.9) Magnesium Level 2.1 MG/DL (1.5-2.5) Total Bilirubin 0.5 MG/DL (0.2-1.0) Aspartate Amino Transf 24 U/L (15-37) (AST/SGOT) Alanine Aminotransferase 26 U/L (12-78) (ALT/SGPT) Alkaline Phosphatase 163 U/L (45-117) Total Protein 6.3 GM/DL (6.4-8.2) Albumin 2.0 GM/DL (3.4-5.0) Test 08/06/16 08/07/16 08/07/16 03:52 05:41 11:14 White Blood Count 14.4 TH/MM3 14.2 TH/MM3 (4.0-11.0) (4.0-11.0) Red Blood Count 2.98 MIL/MM3 3.20 MIL/MM3 (4.50-5.90) (4.50-5.90) Hemoglobin 7.6 GM/DL 8.2 GM/DL (13.0-17.0) (13.0-17.0) Hematocrit 23.6 % 25.2 % (39.0-51.0) (39.0-51.0) Mean Corpuscular Volume 79.4 FL 79.0 FL (80.0-100.0) (80.0-100.0) Mean Corpuscular Hemoglobin 25.7 PG 25.6 PG (27.0-34.0) (27.0-34.0) Mean Corpuscular Hemoglobin 32.4 % 32.4 % Concent (32.0-36.0) (32.0-36.0) Red Cell Distribution Width 19.4 % 19.4 % (11.6-17.2) (11.6-17.2) Platelet Count 261 TH/MM3 260 TH/MM3 (150-450) (150-450) Mean Platelet Volume 8.4 FL 8.4 FL (7.0-11.0) (7.0-11.0) Neutrophils (%) (Auto) 77.5 % 78.5 % (16.0-70.0) (16.0-70.0) Lymphocytes (%) (Auto) 5.3 % 4.8 % (9.0-44.0) (9.0-44.0) Monocytes (%) (Auto) 9.9 % (0.0-8.0) 11.1 % (0.0-8.0) Eosinophils (%) (Auto) 5.1 % (0.0-4.0) 4.6 % (0.0-4.0) Basophils (%) (Auto) 2.2 % (0.0-2.0) 1.0 % (0.0-2.0) Neutrophils # (Auto) 11.2 TH/MM3 11.2 TH/MM3 (1.8-7.7) (1.8-7.7) Lymphocytes # (Auto) 0.8 TH/MM3 0.7 TH/MM3 (1.0-4.8) (1.0-4.8) Monocytes # (Auto) 1.4 TH/MM3 1.6 TH/MM3 (0-0.9) (0-0.9) Eosinophils # (Auto) 0.7 TH/MM3 0.7 TH/MM3 (0-0.4) (0-0.4) Basophils # (Auto) 0.3 TH/MM3 0.1 TH/MM3 (0-0.2) (0-0.2) CBC Comment DIFF FINAL DIFF FINAL Differential Comment Prothrombin Time 25.7 SEC 21.2 SEC (9.8-11.6) (9.8-11.6) Prothromb Time International 2.2 RATIO 1.9 RATIO Ratio Sodium Level 142 MEQ/L 142 MEQ/L (136-145) (136-145) Potassium Level 3.5 MEQ/L 3.2 MEQ/L (3.5-5.1) (3.5-5.1) Chloride Level 109 MEQ/L 109 MEQ/L (98-107) (98-107) Carbon Dioxide Level 23.8 MEQ/L 23.8 MEQ/L (21.0-32.0) (21.0-32.0) Anion Gap 9 MEQ/L (5-15) 9 MEQ/L (5-15) Blood Urea Nitrogen 18 MG/DL (7-18) 13 MG/DL (7-18) Creatinine 1.59 MG/DL 1.32 MG/DL (0.60-1.30) (0.60-1.30) Estimat Glomerular Filtration 42 ML/MIN (>89) 52 ML/MIN (>89) Rate Random Glucose 86 MG/DL 157 MG/DL (74-106) (74-106) Calcium Level 8.2 MG/DL 8.0 MG/DL (8.5-10.1) (8.5-10.1) Phosphorus Level 3.1 MG/DL 3.4 MG/DL 3.0 MG/DL (2.5-4.9) (2.5-4.9) (2.5-4.9) Magnesium Level 2.1 MG/DL 2.2 MG/DL (1.5-2.5) (1.5-2.5) Total Bilirubin 0.5 MG/DL (0.2-1.0) Aspartate Amino Transf 30 U/L (15-37) (AST/SGOT) Alanine Aminotransferase 23 U/L (12-78) (ALT/SGPT) Alkaline Phosphatase 158 U/L (45-117) Total Protein 6.2 GM/DL (6.4-8.2) Albumin 1.9 GM/DL (3.4-5.0) Result Diagram: 08/07/16 0541 08/07/16 0541 Microbiology Microbiology Date/Time Procedure Status Source Growth 08/05/16 12:50 Aerobic Blood Culture - Preliminary Resulted Blood Peripheral NO GROWTH IN 2 DAYS 08/05/16 12:50 Anaerobic Blood Culture - Preliminary Resulted Blood Peripheral NO GROWTH IN 2 DAYS 08/05/16 12:56 Aerobic Blood Culture - Preliminary Resulted Blood Peripheral NO GROWTH IN 2 DAYS 08/05/16 12:56 Anaerobic Blood Culture - Preliminary Resulted Blood Peripheral NO GROWTH IN 2 DAYS 08/05/16 13:00 Urine Culture - Final Complete Urine Clean Catch NO GROWTH IN 48 HOURS. Imaging Last 72 hours Impressions Head Magnetic Resonance Angiography 08/05/16 Signed Impressions: Service Date/Time: Friday, August 05, 2016 16:12 - CONCLUSION: Severe atherosclerotic vascular disease. Stenosis is not almost 100%% in the right internal carotid with filling of the intracranial portion of this via posterior communicating from the posterior circulation. Left initial M1 segment is abruptly terminated which may represent acute thrombus which would correlate with the left middle cerebral artery stroke on MRI. These abnormal findings could be further evaluated with CTA of the brain and or angiography. Robert Ballard MD Head CT 08/05/16 Signed Impressions: Service Date/Time: Friday, August 05, 2016 10:56 - CONCLUSION: 1. No acute intracranial abnormality. 2. Chronic small vessel ischemic change. Govind Terry Jr., MD Chest X-Ray 08/05/16 Signed Impressions: Service Date/Time: Friday, August 05, 2016 11:49 - CONCLUSION: ET tube above the su. No acute cardiopulmonary process. Robert Ballard MD Carotid Artery Ultrasound 08/05/16 0000 Signed Impressions: Service Date/Time: Friday, August 05, 2016 22:25 - CONCLUSION: 1. Right internal carotid artery occlusion. 2. Moderate plaque at the left carotid bulb region, a significant stenosis is not confirmed on the Doppler interrogation. Carlos Eduardo Jordan MD Brain MRI 08/05/16 0000 Signed Impressions: Service Date/Time: Friday, August 05, 2016 16:12 - CONCLUSION: 1. Large left acute nonhemorrhagic MCA territory infarction. No midline shift. 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 Family appeared to be cooperating with each other. Spiritual: Not involved in a rastafari community Legal: None identified Ethical issues impacting care: None identified Important Contacts Finn Pérez - Ozzy [phone] (H) [phone] (W) Family has 3- 2 sons and one daughter in [place] and one son in [place].... Has a "Girlfriend" - Tory Espinal [phone] Cell, ... Lives next to patient. The family has given me permission to speak with her and provide clinical information ans she is a valued friend of the family Prognosis Extremely guarded due to severity of left MCA embolic stroke. Will likely not to return to any meaningful level of activity nor cognition. Code Status: No Code Plan Decision Maker: Finn Kathleen son [phone] Code Status: Family agreed to comfort measures only and no code / DNR Family Discussion: Spoke with family via phone on 08/06/16. The family arrived in the [facility] area today. They have asked that I meet with him tomorrow and may wish to start life support tomorrow as well. Symptoms: Dyspnea, Debility post CVA, pain Palliative care phone number provided - will follow during hospital stay. Attestation To help prompt me to consider important information that might be impacting today's encounter and assessment, information from prior notes written by myself or my colleagues may have been "brought forward" into today's note. My signature on this note, however, is an attestation that I personally performed the exam, history, and/or decision-making noted today, and, unless otherwise indicated, the interactions with patient, family, and staff as well as the review of records all occurred today. I also attest that the listed assessment and stated plan reflect my best clinical judgment today based on the combination of historical information, prior notes, and today's exam/ interactions. When time spent is documented, it refers only to time spent today by the signer, or if indicated, combined time spent today by collaborating physician/nurse practitioner. Lupe Magallanes Aug 07, 2016 16:50 Attestation To help prompt me to consider important information that might be impacting today's encounter and assessment, information from prior notes written by myself or my colleagues may have been "brought forward" into today's note. My signature on this note, however, is an attestation that I personally performed the exam, history, and/or decision-making noted today, and, unless otherwise indicated, the interactions with patient, family, and staff as well as the review of records all occurred today. I also attest that the listed assessment and stated plan reflect my best clinical judgment today based on the combination of historical information, prior notes, and today's exam/ interactions. When time spent is documented, it refers only to time spent today by the signer, or if indicated, combined time spent today by collaborating physician/nurse practitioner. Lupe Magallanes Aug 07, 2016 16:50
[2016-08-08] VITALS (16 sets, daily range): BP systolic 84–143; BP diastolic 51–66; PULSE 45–61; RESP 14–24; TEMP 97.3–98.8; O2SAT 68–100
[2016-08-08] MEDS: INSULIN NovoLIN REGULAR SUPPLEMENTAL SCALE SQ SCH ×3 (00:15→11:57)
[2016-08-08] MEDS: RESP: ALBUTEROL 2.5 MG/IPRATROPIUM 0.5 MG NEB (SCH) INH ×2 (03:38→10:11)
[2016-08-08] MEDS: CHLORHEXIDINE GLUCONATE 2 % 1 PACK (2 CLOTHS) TOP SCH (04:00)
[2016-08-08] MEDS: AMPICILLIN 2 GM/NS 100 ML IV SCH ×6 (05:48→11:57)
[2016-08-08 07:13] LABS: AUTOMATED NEUTROPHIL # 11.1 TH/MM3 (1.8-7.7); BASOPHIL # 0.2 TH/MM3 (0-0.2); BASOPHIL % 1.2 % (0.0-2.0); EOSINOPHIL # 0.5 TH/MM3 (0-0.4); EOSINOPHIL % 3.5 % (0.0-4.0); HEMATOCRIT 24.1 % (39.0-51.0); HEMO FLAGS DIFF FINAL; LYMPHOCYTE # 0.7 TH/MM3 (1.0-4.8); MEAN CELL VOLUME 79.6 FL (80.0-100.0); MEAN CORPUSCULAR HEMOGLOBIN 25.7 PG (27.0-34.0); MEAN CORPUSCULAR HGB CONC 32.3 % (32.0-36.0); MONO % 9.7 % (0.0-8.0); NEUT % 80.6 % (16.0-70.0); PLATELET COUNT 240 TH/MM3 (150-450); RED BLOOD COUNT 3.03 MIL/MM3 (4.50-5.90); RED CELL DISTRIBUTION WIDTH 19.4 % (11.6-17.2); WHITE BLOOD COUNT 13.8 TH/MM3 (4.0-11.0)
[2016-08-08 07:36] LABS: BICARBONATE 24.8 MEQ/L (21.0-32.0); MAGNESIUM 2.4 MG/DL (1.5-2.5); POTASSIUM 3.5 MEQ/L (3.5-5.1)
[2016-08-08] MEDS: PROPOFOL 1000 MG/100 ML INJ 100 ML IV SCH (08:19)
[2016-08-08] MEDS: PANTOPRAZOLE SODIUM 40 MG VIAL IV SCH (08:19)
--- NOTE | 2016-08-08 13:43 | HHI.HCPN ---
Reason for visit a. To assist with evaluation and management of symptoms including: dyspnea, pain, Debility b. To assist medical decision maker(s) with: better understanding of current medical conditions; weighing benefits/burdens of medical treatment options; making medical treatment decisions. . Subjective/Interval History Pt continues to show decline. He remains anemic, with leukocytosis in spite of antibiotics. His family is present. A clinical review was completed and questions answered. They are in agreement to withdraw life support today. . Family/friend interactions Met with all four children, Finn (GAUTAM), Mike Harper, Denise, Reed as well as his grandson Jairo and ALAINA. Exhibits were signed. Plan for withdrawal at 2:30pm Advance Directives Living Will: Copy in medical record Health Care Surrogate: Copy in medical record Advance Directive Specifics Date completed: 07/20/16 Health Care Surrogate(s): --Finn Dias ( son) [phone] (H) / CELL [phone] - USE THIS NUMBER Documented care wishes: Standard living will Objective Vital Signs Date Time Temp Pulse Resp B/P Pulse Ox O2 Delivery O2 Flow Rate FiO2 08/08/16 12:00 40 08/08/16 12:00 98.0 50 14 143/66 100 08/08/16 12:00 50 08/08/16 10:05 99 40 08/08/16 10:00 49 08/08/16 08:00 51 08/08/16 08:00 98.2 51 22 138/66 100 08/08/16 08:00 40 08/08/16 06:00 50 08/08/16 04:42 99 40 08/08/16 04:00 98.8 52 16 132/62 99 08/08/16 04:00 40 08/08/16 04:00 52 08/08/16 02:00 47 08/08/16 01:45 99 40 08/08/16 00:00 98.4 58 16 132/60 99 08/08/16 00:00 56 08/08/16 00:00 40 08/07/16 22:00 58 08/07/16 21:20 99 40 08/07/16 20:00 68 08/07/16 20:00 98.2 68 20 142/66 99 08/07/16 20:00 40 08/07/16 16:45 100 40 2/22/17 16:00 40 08/07/16 16:00 98.3 61 24 173/77 100 Intake & Output 08/08/16 08/08/16 07:00 19:00 Intake Total 1966 ml Output Total 1200 ml 0 ml Balance 766 ml 0 ml IV Total 1626 ml Tube Feeding 340 ml Output Urine Total 1200 ml Tube Feeding Residual Discard 0 ml 0 ml # Bowel Movements 0 Physical Exam CONSTITUTIONAL/GENERAL: This is an adequately nourished patient, in no apparent distress. TUBES/LINES/DRAINS: ET tube, Duron catheter. Rectal bag, multiple IV lines SKIN: He appears more ashen, Ecchymoses on upper extremities. Skin temperature appropriate. Not diaphoretic. HEAD: Atraumatic. Normocephalic. EYES: Pupils equal and round and nonreactive. ENT: Mouth is dry. He is an ET tube in place. NECK: Trachea midline. Supple, nontender. No palpable thyroid enlargement or nodularity. CARDIOVASCULAR: Irregular rate and rhythm without murmurs, gallops, or rubs. No JVD. Peripheral pulses symmetric. RESPIRATORY/CHEST: Symmetric, unlabored respirations. Clear to auscultation. Breath sounds equal bilaterally. No wheezes, rales, or rhonchi. GASTROINTESTINAL: Abdomen soft, non-tender, nondistended. No hepato-splenomegaly , or palpable masses. Bowel sounds present. GENITOURINARY: Without palpable bladder distension. Duron catheter in place. MUSCULOSKELETAL: Extremities with edema, without clubbing, cyanosis, or edema. No mottling or clubbing. LYMPHATICS: No palpable cervical or supraclavicular adenopathy. NEUROLOGICAL: Sedated - unable to assess neurologic status PSYCHIATRIC: Unable to assess Diagnostic Tests Laboratory Laboratory Tests Test 08/06/16 08/07/16 08/07/16 08/08/16 03:52 05:41 11:14 06:24 White Blood Count 14.4 TH/MM3 14.2 TH/MM3 13.8 TH/MM3 (4.0-11.0) (4.0-11.0) (4.0-11.0) Red Blood Count 2.98 MIL/MM3 3.20 MIL/MM3 3.03 MIL/MM3 (4.50-5.90) (4.50-5.90) (4.50-5.90) Hemoglobin 7.6 GM/DL 8.2 GM/DL 7.8 GM/DL (13.0-17.0) (13.0-17.0) (13.0-17.0) Hematocrit 23.6 % 25.2 % 24.1 % (39.0-51.0) (39.0-51.0) (39.0-51.0) Mean Corpuscular Volume 79.4 FL 79.0 FL 79.6 FL (80.0-100.0) (80.0-100.0) (80.0-100.0) Mean Corpuscular Hemoglobin 25.7 PG 25.6 PG 25.7 PG (27.0-34.0) (27.0-34.0) (27.0-34.0) Mean Corpuscular Hemoglobin 32.4 % 32.4 % 32.3 % Concent (32.0-36.0) (32.0-36.0) (32.0-36.0) Red Cell Distribution Width 19.4 % 19.4 % 19.4 % (11.6-17.2) (11.6-17.2) (11.6-17.2) Platelet Count 261 TH/MM3 260 TH/MM3 240 TH/MM3 (150-450) (150-450) (150-450) Mean Platelet Volume 8.4 FL 8.4 FL 8.5 FL (7.0-11.0) (7.0-11.0) (7.0-11.0) Neutrophils (%) (Auto) 77.5 % 78.5 % 80.6 % (16.0-70.0) (16.0-70.0) (16.0-70.0) Lymphocytes (%) (Auto) 5.3 % 4.8 % 5.0 % (9.0-44.0) (9.0-44.0) (9.0-44.0) Monocytes (%) (Auto) 9.9 % (0.0-8.0) 11.1 % 9.7 % (0.0-8.0) (0.0-8.0) Eosinophils (%) (Auto) 5.1 % (0.0-4.0) 4.6 % (0.0-4.0) 3.5 % (0.0-4.0) Basophils (%) (Auto) 2.2 % (0.0-2.0) 1.0 % (0.0-2.0) 1.2 % (0.0-2.0) Neutrophils # (Auto) 11.2 TH/MM3 11.2 TH/MM3 11.1 TH/MM3 (1.8-7.7) (1.8-7.7) (1.8-7.7) Lymphocytes # (Auto) 0.8 TH/MM3 0.7 TH/MM3 0.7 TH/MM3 (1.0-4.8) (1.0-4.8) (1.0-4.8) Monocytes # (Auto) 1.4 TH/MM3 1.6 TH/MM3 1.3 TH/MM3 (0-0.9) (0-0.9) (0-0.9) Eosinophils # (Auto) 0.7 TH/MM3 0.7 TH/MM3 0.5 TH/MM3 (0-0.4) (0-0.4) (0-0.4) Basophils # (Auto) 0.3 TH/MM3 0.1 TH/MM3 0.2 TH/MM3 (0-0.2) (0-0.2) (0-0.2) CBC Comment DIFF FINAL DIFF FINAL DIFF FINAL Differential Comment Prothrombin Time 25.7 SEC 21.2 SEC (9.8-11.6) (9.8-11.6) Prothromb Time International 2.2 RATIO 1.9 RATIO Ratio Sodium Level 142 MEQ/L 142 MEQ/L 147 MEQ/L (136-145) (136-145) (136-145) Potassium Level 3.5 MEQ/L 3.2 MEQ/L 3.5 MEQ/L (3.5-5.1) (3.5-5.1) (3.5-5.1) Chloride Level 109 MEQ/L 109 MEQ/L 114 MEQ/L (98-107) (98-107) (98-107) Carbon Dioxide Level 23.8 MEQ/L 23.8 MEQ/L 24.8 MEQ/L (21.0-32.0) (21.0-32.0) (21.0-32.0) Anion Gap 9 MEQ/L (5-15) 9 MEQ/L (5-15) 8 MEQ/L (5-15) Blood Urea Nitrogen 18 MG/DL (7-18) 13 MG/DL (7-18) 17 MG/DL (7-18) Creatinine 1.59 MG/DL 1.32 MG/DL 1.22 MG/DL (0.60-1.30) (0.60-1.30) (0.60-1.30) Estimat Glomerular Filtration 42 ML/MIN (>89) 52 ML/MIN (>89) 57 ML/MIN (>89) Rate Random Glucose 86 MG/DL 157 MG/DL 168 MG/DL (74-106) (74-106) (74-106) Calcium Level 8.2 MG/DL 8.0 MG/DL 8.2 MG/DL (8.5-10.1) (8.5-10.1) (8.5-10.1) Phosphorus Level 3.1 MG/DL 3.4 MG/DL 3.0 MG/DL 3.3 MG/DL (2.5-4.9) (2.5-4.9) (2.5-4.9) (2.5-4.9) Magnesium Level 2.1 MG/DL 2.2 MG/DL 2.4 MG/DL (1.5-2.5) (1.5-2.5) (1.5-2.5) Total Bilirubin 0.5 MG/DL (0.2-1.0) Aspartate Amino Transf 30 U/L (15-37) (AST/SGOT) Alanine Aminotransferase 23 U/L (12-78) (ALT/SGPT) Alkaline Phosphatase 158 U/L (45-117) Total Protein 6.2 GM/DL (6.4-8.2) Albumin 1.9 GM/DL (3.4-5.0) Result Diagram: 08/08/16 0624 08/08/16 0624 Imaging Last Impressions Head Magnetic Resonance Angiography 08/05/16 0000 Signed Impressions: Service Date/Time: Friday, August 05, 2016 16:12 - CONCLUSION: Severe atherosclerotic vascular disease. Stenosis is not almost 100%% in the right internal carotid with filling of the intracranial portion of this via posterior communicating from the posterior circulation. Left initial M1 segment is abruptly terminated which may represent acute thrombus which would correlate with the left middle cerebral artery stroke on MRI. These abnormal findings could be further evaluated with CTA of the brain and or angiography. Robert Ballard MD Head CT 08/05/16 Signed Impressions: Service Date/Time: Friday, August 05, 2016 10:56 - CONCLUSION: 1. No acute intracranial abnormality. 2. Chronic small vessel ischemic change. Govind Terry Jr., MD Chest X-Ray 08/05/16 Signed Impressions: Service Date/Time: Friday, August 05, 2016 11:49 - CONCLUSION: ET tube above the su. No acute cardiopulmonary process. Robert Ballard MD Carotid Artery Ultrasound 08/05/16 Signed Impressions: Service Date/Time: Friday, August 05, 2016 22:25 - CONCLUSION: 1. Right internal carotid artery occlusion. 2. Moderate plaque at the left carotid bulb region, a significant stenosis is not confirmed on the Doppler interrogation. Carlos Eduardo Jordan MD Brain MRI 08/05/16 Signed Impressions: Service Date/Time: Friday, August 05, 2016 16:12 - CONCLUSION: 1. Large left acute nonhemorrhagic MCA territory infarction. No midline shift. 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 Family appeared to be cooperating with each other. Spiritual: Not involved in a gnosticism community Legal: None identified Ethical issues impacting care: None identified Important Contacts Gene Short - Son [phone] (H) [phone] (W) Family has 3- 2 sons and one daughter in [place] and one son in [place].... Has a "Girlfriend" - Tory Espinal [phone] Cell, ... Lives next to patient. The family has given me permission to speak with her and provide clinical information ans she is a valued friend of the family Prognosis Extremely guarded due to severity of left MCA embolic stroke. Will likely not to return to any meaningful level of activity nor cognition. Family has decided to withdraw life support. Code Status: No Code Plan Decision Maker: Finn Pérez - son [phone] Code Status: Family agreed to comfort measures only and no code / DNR Family Discussion: Met with family - all agree to withdrawal of life support today Symptoms: Dyspnea, Debility post CVA, pain Palliative care phone number provided - will follow during hospital stay. Attestation To help prompt me to consider important information that might be impacting today's encounter and assessment, information from prior notes written by myself or my colleagues may have been "brought forward" into today's note. My signature on this note, however, is an attestation that I personally performed the exam, history, and/or decision-making noted today, and, unless otherwise indicated, the interactions with patient, family, and staff as well as the review of records all occurred today. I also attest that the listed assessment and stated plan reflect my best clinical judgment today based on the combination of historical information, prior notes, and today's exam/ interactions. When time spent is documented, it refers only to time spent today by the signer, or if indicated, combined time spent today by collaborating physician/nurse practitioner. Lupe Magallanes Aug 08, 2016 13:43
[2016-08-08] MEDS ORDERED: HYOSCYAMINE 0.5 MG/ML AMP IV ONE (14:00)
[2016-08-08] MEDS ORDERED: MORPHINE SULFATE 8 MG/ML INJ IV PUSH ONE (14:00)
[2016-08-08] MEDS ORDERED: LORazepam 2 MG/ML VIAL IV ONE ×2 (14:00→14:15)
[2016-08-08] MEDS ORDERED: MORPHINE SULFATE 4 MG/ML INJ IV ONE (14:15)
[2016-08-08] MEDS ORDERED: MORPHINE SULFATE 4 MG/ML INJ IV PRN (14:30)
[2016-08-08] MEDS ORDERED: BISACODYL 10 MG SUPP PR PRN (14:30)
[2016-08-08] MEDS ORDERED: LORazepam 2 MG/ML VIAL IV PRN ×2 (14:30)
[2016-08-08] MEDS ORDERED: MORPHINE SULFATE 8 MG/ML INJ IV PUSH PRN (14:30)
[2016-08-08] MEDS ORDERED: HYOSCYAMINE 0.5 MG/ML AMP IV PRN (14:30)
[2016-08-08] MEDS ORDERED: LORazepam 2 MG/ML VIAL IVS PRN (14:30)
[2016-08-08] MEDS ORDERED: ACETAMINOPHEN 650 MG SUPP PR PRN (14:30)
[2016-08-08] MEDS ORDERED: FUROSEMIDE 20 MG/2 ML VIAL IV PRN (14:30)
--- NOTE | 2016-08-08 14:41 | HHI.CCPN ---
Subjective Remarks/Hospital Course The patient is a 76-year-old male with a past medical history of chronic kidney disease, anemia, CVA secondary to embolism, who was initially admitted to a rehab facility from [facility] in [place]. The patient was recently diagnosed with Enterococcus bacteremia and was started on IV antibiotics in the form of ampicillin and gentamicin. 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 He had a CT scan of the brain which showed multiple small areas of acute infarcts involving the right occipital lobe, right thalamic, right parietal, left frontal and left cerebellar hemisphere. MRI of the brain was obtained which also showed multiple acute infarcts and MRA of the head showed findings compatible with occlusion of the right internal carotid artery. He was admitted to [facility] for stroke rehab. Mary Lou was called earlier today as a Stroke Alert after the patient was found unresponsive with agonal breathing and neuro changes. He was subsequently transferred to [facility] where he was intubated and placed on full mechanical ventilation. A STAT CT scan of the brain was obtained which showed chronic small-vessel ischemic changes, otherwise no acute intracranial abnormality. 08/06 Patient is sedated with Diprivan and sedated, Afebrile. MRI brain showed large left MCA non hemorrhagic infarct. 08/07 Patient is sedated with Diprivan and intubated. T:99.9 last night. 08/08 Family has decided to withdraw life support. Patient appears comfortable on vent Objective Vital Signs Date Time Temp Pulse Resp B/P Pulse Ox O2 Delivery O2 Flow Rate FiO2 08/08/16 12:00 40 08/08/16 12:00 98.0 50 14 143/66 100 08/05/16 17:24 Venturi Mask Intake and Output 08/07/16 08/07/16 08/08/16 08:00 16:00 00:00 Intake Total 2699 ml 750 ml 866 ml Output Total 600 ml 1550 ml 850 ml Balance 2099 ml -800 ml 16 ml Result Diagram: 08/08/16 0624 08/08/16 0624 Imaging Last Impressions Head Magnetic Resonance Angiography 08/05/16 0000 Signed Impressions: Service Date/Time: Friday, August 05, 2016 16:12 - CONCLUSION: Severe atherosclerotic vascular disease. Stenosis is not almost 100%% in the right internal carotid with filling of the intracranial portion of this via posterior communicating from the posterior circulation. Left initial M1 segment is abruptly terminated which may represent acute thrombus which would correlate with the left middle cerebral artery stroke on MRI. These abnormal findings could be further evaluated with CTA of the brain and or angiography. Robert Ballard MD Head CT 08/05/16 Signed Impressions: Service Date/Time: Friday, August 05, 2016 10:56 - CONCLUSION: 1. No acute intracranial abnormality. 2. Chronic small vessel ischemic change. Govind Terry Jr., MD Chest X-Ray 08/05/16 Signed Impressions: Service Date/Time: Friday, August 05, 2016 11:49 - CONCLUSION: ET tube above the su. No acute cardiopulmonary process. Robert Ballard MD Carotid Artery Ultrasound 08/05/16 Signed Impressions: Service Date/Time: Friday, August 05, 2016 22:25 - CONCLUSION: 1. Right internal carotid artery occlusion. 2. Moderate plaque at the left carotid bulb region, a significant stenosis is not confirmed on the Doppler interrogation. Carlos Eduardo Jordan MD Brain MRI 08/05/16 Signed Impressions: Service Date/Time: Friday, August 05, 2016 16:12 - CONCLUSION: 1. Large left acute nonhemorrhagic MCA territory infarction. No midline shift. Govind Terry Jr., MD Objective Remarks GENERAL: Patient is 76 yo critically ill sedated and intubated. SKIN: Warm and dry. HEAD: Normocephalic. EYES: No scleral icterus. No injection or drainage. NECK: Supple, trachea midline. No JVD or lymphadenopathy. Orally intubated CARDIOVASCULAR: Regular rate and rhythm without murmurs, gallops, or rubs. RESPIRATORY: Breath sounds equal bilaterally. No accessory muscle use. GASTROINTESTINAL: Abdomen soft, non-tender, nondistended. MUSCULOSKELETAL: No cyanosis, or edema. Neuro: sedated. A/P Assessment and Plan 1. Acute respiratory failure 2. Encephalopathy. 3. Left MCA non hemorrhagic infarct. 4. Recent Enterococcus bacteremia. 5. Chronic kidney disease. 6. Atrial fibrillation on Coumadin. 7. Hypertension. 8. Anemia 9 Hx CVA 10 Leukocytosis Plan Neuro: on Diprivan infusion for sedation and vent synchrony. Plan is for withdrawal of life support. Monitor neuro status Neuro: Dr. Powell 08/05: CT brain: no evidence of any acute intracranial abnormality. 08/05: MRI brain: New left MCA non hemorrhagic infarct. 08/05: MRA brain: Severe atherosclerotic vascular disease. Stenosis is not almost 100%% in the right internal carotid with filling of the intracranial portion of this via posterior communicating from the posterior circulation. 08/05: Carotid Doppler US: Right internal carotid artery occlusion. Moderate plaque at the left carotid bulb region, EEG: Slowing over left hemisphere, no epileptiform features. Pulm: Plan is for withdrawal of life support today CV: Monitor HR and BP and maintain MAP >65 mmHg. : Monitor renal function I's and O's and avoid nephrotoxins. Electrolytes replacement per protocol. GI: on Protonix 40 mg IV daily for GI prophylaxis. On TF-Glucerna 1.5 with goal rate of 45 per hour. ID: Continue with abx per ID- Ampicillin. Follow up on blood and urine cxs CXR: No acute cardiopulmonary process. Endo: SSI with Accu-Chek q. 6-hour if needed for glycemic control. Heme: Monitor CBC and coags - INR 1.9 today GI prophylaxis with Protonix 40 mg daily and DVT prophylaxis with SCDs and patient was on Coumadin with INR: 1.9 today. Coumadin on hold per neuro due to increased risk of hemorrhagic conversion. Palliative care is on case. Palliative care discussed with family and plan to transition to comfort care today Patient is critically ill with poor prognosis. Level 2 Jamir Thibodeaux MD Aug 08, 2016 14:41
[2016-08-08] MEDS: MORPHINE SULFATE 8 MG/ML INJ IV PUSH SCH ×2 (19:53→20:01)
[2016-08-08] MEDS: LORazepam 2 MG/ML VIAL IV SCH ×2 (19:55→20:21)
[2016-08-09] VITALS: PULSE 60
[2016-08-09] MEDS: MORPHINE SULFATE 8 MG/ML INJ IV PUSH SCH (00:20)
[2016-08-09] MEDS: LORazepam 2 MG/ML VIAL IV SCH (00:21)
--- NOTE | 2016-08-09 06:30 | DEATH SUM ---
Summary Demographics Date Pronounced : Aug 09, 2016 Time Of : 0120 Pronounced By: Bony Morales RN Preliminary Cause of : Cardiac arrest Jamir Thibodeaux MD Aug 09, 2016 06:29
--- NOTE | 2016-08-09 06:32 | HHI.DS ---
Summary Note Date of : Aug 09, 2016 Time Of : 0120 Admission Date Aug 05, 2016 at 10:09 Admitting Diagnosis L MCA stroke, acute Diagnosis at Time of : (1) Left acute arterial ischemic stroke, MCA (middle cerebral artery) ICD Code: I63.512 Diagnosis: Principal (2) Acute encephalopathy ICD Code: G93.40 Diagnosis: Principal (3) Acute respiratory failure ICD Code: J96.00 Diagnosis: Principal (4) Acute kidney injury ICD Code: N17.9 Diagnosis: Principal (5) COPD (chronic obstructive pulmonary disease) ICD Code: J44.9 Diagnosis: Secondary (6) Stroke due to embolism ICD Code: I63.9 Diagnosis: Secondary (7) Major neurocognitive disorder due to vascular disease, without behavioral disturbance, severe ICD Code: F01.50 Diagnosis: Secondary (8) Renal insufficiency ICD Code: N28.9 Diagnosis: Secondary (9) Atrial fibrillation ICD Code: I48.91 Diagnosis: Secondary (10) Anemia ICD Code: D64.9 Diagnosis: Secondary (11) CAD (coronary artery disease) ICD Code: I25.10 Diagnosis: Secondary (12) Enterococcal bacteremia ICD Code: R78.81 Diagnosis: Secondary (13) H/O aortic valve replacement ICD Code: Z95.2 Diagnosis: Secondary Brief History The patient is a 76-year-old male with a past medical history of chronic kidney disease, anemia, 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 in [place]. The patient was recently diagnosed with Enterococcus bacteremia and was started on IV antibiotics in the form of ampicillin and gentamicin. 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 He had a CT scan of the brain which showed multiple small areas of acute infarcts involving the right occipital lobe, right thalamic, right parietal, left frontal and left cerebellar hemisphere. MRI of the brain was obtained which also showed multiple acute infarcts and MRA of the head showed findings compatible with occlusion of the right internal carotid artery. He was [facility] after the patient was found unresponsive with agonal breathing and neuro changes. He was subsequently transferred to [facility] where he was intubated and placed on full mechanical ventilation. A STAT CT scan of the brain was obtained which showed chronic small-vessel ischemic changes, otherwise no acute intracranial abnormality. CBC/BMP: 08/08/16 0624 08/08/16 0624 Significant Findings Laboratory Tests Test 08/07/16 08/08/16 05:41 06:24 White Blood Count 14.2 TH/MM3 13.8 TH/MM3 (4.0-11.0) (4.0-11.0) Red Blood Count 3.20 MIL/MM3 3.03 MIL/MM3 (4.50-5.90) (4.50-5.90) Hemoglobin 8.2 GM/DL 7.8 GM/DL (13.0-17.0) (13.0-17.0) Hematocrit 25.2 % 24.1 % (39.0-51.0) (39.0-51.0) Mean Corpuscular Volume 79.0 FL 79.6 FL (80.0-100.0) (80.0-100.0) Mean Corpuscular Hemoglobin 25.6 PG 25.7 PG (27.0-34.0) (27.0-34.0) Red Cell Distribution Width 19.4 % 19.4 % (11.6-17.2) (11.6-17.2) Neutrophils (%) (Auto) 78.5 % 80.6 % (16.0-70.0) (16.0-70.0) Lymphocytes (%) (Auto) 4.8 % 5.0 % (9.0-44.0) (9.0-44.0) Monocytes (%) (Auto) 11.1 % 9.7 % (0.0-8.0) (0.0-8.0) Eosinophils (%) (Auto) 4.6 % (0.0-4.0) Neutrophils # (Auto) 11.2 TH/MM3 11.1 TH/MM3 (1.8-7.7) (1.8-7.7) Lymphocytes # (Auto) 0.7 TH/MM3 0.7 TH/MM3 (1.0-4.8) (1.0-4.8) Monocytes # (Auto) 1.6 TH/MM3 1.3 TH/MM3 (0-0.9) (0-0.9) Eosinophils # (Auto) 0.7 TH/MM3 0.5 TH/MM3 (0-0.4) (0-0.4) Prothrombin Time 21.2 SEC (9.8-11.6) Potassium Level 3.2 MEQ/L (3.5-5.1) Chloride Level 109 MEQ/L 114 MEQ/L (98-107) (98-107) Creatinine 1.32 MG/DL (0.60-1.30) Estimat Glomerular Filtration 52 ML/MIN (>89) 57 ML/MIN (>89) Rate Random Glucose 157 MG/DL 168 MG/DL (74-106) (74-106) Calcium Level 8.0 MG/DL 8.2 MG/DL (8.5-10.1) (8.5-10.1) Sodium Level 147 MEQ/L (136-145) Imaging Last Impressions Head Magnetic Resonance Angiography 08/05/16 Signed Impressions: Service Date/Time: Friday, August 05, 2016 16:12 - CONCLUSION: Severe atherosclerotic vascular disease. Stenosis is not almost 100%% in the right internal carotid with filling of the intracranial portion of this via posterior communicating from the posterior circulation. Left initial M1 segment is abruptly terminated which may represent acute thrombus which would correlate with the left middle cerebral artery stroke on MRI. These abnormal findings could be further evaluated with CTA of the brain and or angiography. Robert Ballard MD Head CT 08/05/16 Signed Impressions: Service Date/Time: Friday, August 05, 2016 10:56 - CONCLUSION: 1. No acute intracranial abnormality. 2. Chronic small vessel ischemic change. Govind Terry Jr., MD Chest X-Ray 08/05/16 Signed Impressions: Service Date/Time: Friday, August 05, 2016 11:49 - CONCLUSION: ET tube above the su. No acute cardiopulmonary process. Robert Ballard MD Carotid Artery Ultrasound 08/05/16 Signed Impressions: Service Date/Time: Friday, August 05, 2016 22:25 - CONCLUSION: 1. Right internal carotid artery occlusion. 2. Moderate plaque at the left carotid bulb region, a significant stenosis is not confirmed on the Doppler interrogation. Carlos Eduardo Jordan MD Brain MRI 08/05/16 Signed Impressions: Service Date/Time: Friday, August 05, 2016 16:12 - CONCLUSION: 1. Large left acute nonhemorrhagic MCA territory infarction. No midline shift. 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 in [place]. He was recently diagnosed with Enterococcus bacteremia and was started on IV antibiotics in the form of ampicillin and gentamicin. 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 He had a CT scan of the brain which showed multiple small areas of acute infarcts involving the right occipital lobe, right thalamic, right parietal, left frontal and left cerebellar hemisphere. MRI of the brain was obtained which also showed multiple acute infarcts and MRA of the head showed findings compatible with occlusion of the right internal carotid artery. He was admitted to [facility] for stroke rehab. [facility] was called 08/05/16 as a Stroke Alert after the patient was found unresponsive with agonal breathing and neuro changes. He was subsequently transferred to [facility] where he was intubated and placed on full mechanical ventilation. A STAT CT scan of the brain was obtained which showed chronic small-vessel ischemic changes, otherwise no acute intracranial abnormality. 08/06 Patient is sedated with Diprivan and sedated, Afebrile. MRI brain showed large left MCA non hemorrhagic infarct. No improvement in neuro exam 08/07 Patient is sedated with Diprivan and intubated. T:99.9 last night. Family has decided to withdraw life support. Life Support was withdrawn in the afternoon of 08/08/16.patient comfortably at 1:20 AM on 08/09/69 Jamir Thibodeaux MD Aug 09, 2016 06:32
== END 2016-08-09 01:20 | disposition expired | DRG 64 ==
LOC: HIMN 10:09
PROVIDERS: ADMIT Internal Medicine Critical Care Medicine; ATTEND Internal Medicine Critical Care Medicine
PROC: 0BH17EZ Insertion of Endotracheal Airway into Trachea, Via Natural or Artificial Opening (ICD-10-PCS; principal; 2016-08-05)
PROC: 5A1945Z Respiratory Ventilation, 24-96 Consecutive Hours (ICD-10-PCS; 2016-08-05)
DX: I63.412 Cerebral infarction due to embolism of left middle cerebral artery (principal); J96.00 Acute respiratory failure, unspecified whether with hypoxia or hypercapnia; G93.40 Encephalopathy, unspecified; N17.9 Acute kidney failure, unspecified; R78.81 Bacteremia; I12.9 Hypertensive chronic kidney disease with stage 1 through stage 4 chronic kidney disease, or unspecified chronic kidney disease; N18.9 Chronic kidney disease, unspecified; I48.2 Chronic atrial fibrillation; Z79.01 Long term (current) use of anticoagulants; I46.9 Cardiac arrest, cause unspecified; J44.9 Chronic obstructive pulmonary disease, unspecified; K21.9 Gastro-esophageal reflux disease without esophagitis; I25.10 Atherosclerotic heart disease of native coronary artery without angina pectoris; Z95.2 Presence of prosthetic heart valve; Z95.1 Presence of aortocoronary bypass graft; I65.21 Occlusion and stenosis of right carotid artery; Z66 Do not resuscitate; Z51.5 Encounter for palliative care; E11.22 Type 2 diabetes mellitus with diabetic chronic kidney disease; F01.50 Vascular dementia, unspecified severity, without behavioral disturbance, psychotic disturbance, mood disturbance, and anxiety; D64.9 Anemia, unspecified; M19.90 Unspecified osteoarthritis, unspecified site; R79.89 Other specified abnormal findings of blood chemistry; Z87.891 Personal history of nicotine dependence
CPT/HCPCS: 31500; 36600; 70450; 70544; 70551; 71010; 76937; 80048; 80053; 81001; 82805; 83735; 84100; 85025; 85610; 87040; 87086; 87641; 93306; 93880; 94002; 94003; 94640; 94664; 95819; C9113; J0290; J0360; J1940; J1980; J2060; J2270; J7042